=== PATIENT | female | born 1955 | race Caucasian/White ===

== ENCOUNTER 2019-08-31 08:25 | Outpatient (CLI) | payer MEDICARE, SELFPAY ==
--- NOTE | ~2019-08-31 | MM_ITS ---
EXAMINATION: MM screening [facility] BI w varun HISTORY: Screening mammogram TECHNIQUE: Craniocaudal and mediolateral oblique 3-D tomosynthesis images were obtained and synthetic 2-D images were generated. CAD analysis was submitted and interpreted. COMPARISON: 08/28/2018, 08/04/2017, 07/29/2016 bilateral digital screening mammogram examinations. BREAST PARENCHYMAL COMPOSITION: The breasts are heterogeneously dense, which may obscure small masses . FINDINGS: There is no evidence of suspicious mass, calcification, or architectural distortion to sugg est malignancy in either breast. There has been no suspicious interval change. IMPRESSION: 1. No mammographic evidence of malignancy. 2. Recommend routine screening mammography in one year. BI-RADS Category 1: Negative Reviewed, dictated and finalized at location A.
== END 2019-08-31 08:26 | disposition home or self-care (01) ==
DX: Z12.31 Encounter for screening mammogram for malignant neoplasm of breast (principal)
CPT/HCPCS: 77063; 77067

== ENCOUNTER 2020-09-02 08:33 | Outpatient (CLI) | payer MEDICARE, SELFPAY ==
--- NOTE | ~2020-09-02 | MM_ITS ---
EXAMINATION: MM screening marianne BI w varun HISTORY: Screening mammogram TECHNIQUE: Craniocaudal and mediolateral oblique 3-D tomosynthesis images were obtained and synthetic 2-D images were generated. CAD analysis was submitted and interpreted. COMPARISON: 09/08/2019, 08/28/2018, 08/04/2017 bilateral digital screening mammogram examinations BREAST PARENCHYMAL COMPOSITION: The breasts are heterogeneously dense, which may obscure small masses . FINDINGS: There is no evidence of suspicious mass, calcification, or architectural distortion to sugg est malignancy in either breast. There has been no suspicious interval change. IMPRESSION: 1. No mammographic evidence of malignancy. 2. Recommend routine screening mammography in one year. BI-RADS Category 1: Negative Reviewed, dictated and finalized at location A.
== END 2020-09-02 08:34 | disposition home or self-care (01) ==
LOC: ANHIMG 08:37
DX: Z12.31 Encounter for screening mammogram for malignant neoplasm of breast (principal)
CPT/HCPCS: 77063; 77067

== ENCOUNTER 2021-10-31 08:10 | Outpatient (CLI) | payer MEDICARE, SELFPAY ==
--- NOTE | ~2021-10-31 | MM_ITS ---
EXAMINATION: MM screening [facility] BI w varun HISTORY: Screening mammogram TECHNIQUE: Craniocaudal and mediolateral oblique 3-D tomosynthesis images were obtained and synthetic 2-D images were generated. CAD analysis was submitted and interpreted. COMPARISON: 09/02/2020, 08/31/2019 BREAST PARENCHYMAL COMPOSITION: The breasts are heterogeneously dense, which may obscure small masses . FINDINGS: There is no suspicious mass, calcification, or architectural distortion to suggest malignan cy in either breast. There has been no suspicious interval change. IMPRESSION: 1. No mammographic evidence of malignancy. 2. Recommend routine screening mammography in one year. BI-RADS Category 1: Negative Reviewed, dictated and finalized at location A.
== END 2021-10-31 08:11 | disposition home or self-care (01) ==
DX: Z12.31 Encounter for screening mammogram for malignant neoplasm of breast (principal)
CPT/HCPCS: 77063; 77067

== ENCOUNTER 2022-08-13 14:17 | Emergency (ER) | payer MEDICARE, SELFPAY ==
[2022-08-13] VITALS (10 sets, daily range): BP systolic 162–199; BP diastolic 64–94; PULSE 55–63; RESP 13–21; TEMP 36.4; O2SAT 96–100
--- NOTE | ~2022-08-13 | XR_ITS ---
Clinical Indication: Chest pain PA and lateral views of the chest: Comparison: 05/25/2012 Findings: The lungs are clear, without evidence of focal consolidation or pleural effusion. Cardiome diastinal silhouette is within normal limits. Bones and soft tissues are unremarkable. Impression: Normal chest. Reviewed, dictated and finalized at location . Impression: Normal chest.
--- NOTE | 2022-08-13 14:19 | ECG_ITS ---
Measurements Intervals [place] Rate: 60 P: 34 MN: 238 QRS: 9 QRSD: 105 T: 48 QT: 421 QTc: 424 Interpretive Statements SINUS RHYTHM WITH FIRST DEGREE AV BLOCK NO PREVIOUS ECG AVAILABLE FOR COMPARISON Electronically Signed On 08-13-2022 15:44:16 CDT by Kashmir Huff M.D.
[2022-08-13 14:44] LABS: Basophils Percent Auto 0.4 % (0.2-1.2); Eosinophils Absolute Auto 0.2 K/mm3 (0-0.3); Eosinophils Percent Auto 2.4 % (0-4.4); Hematocrit 38.6 % (37.0-47.0); Hemoglobin 12.6 g/dL (12.0-15.0); Immature Granulocyte Absolute 0.02 K/mm3 (0.00-0.031); Immature Granulocyte Percent A 0.3 % (0-0.5); Lymphocytes Absolute Auto 1.73 K/mm3 (0.9-3.2); Lymphocytes Percent Auto 25.6 % (18.3-44.2); Mean Corpuscular HGB Conc 32.6 g/dl (32-36); Mean Corpuscular Hemoglobin 27.2 pg (26-34); Mean Corpuscular Volume 83.2 fl (80-100); Mean Platelet Volume 9.2 fl (7.4-10.4); Monocytes Absolute Auto 0.5 K/mm3 (0.1-0.6); Neutrophils Absolute Auto 4.3 K/mm3 (1.3-6.7); Neutrophils Percent Auto 63.3 % (45.5-73.1); Platelet Count Result 187 k/mm3 (150-375); Red Blood Count 4.64 M/mm3 (4.2-5.4); Red Cell Distribution Width 12.9 % (11.5-14.5); White Blood Count 6.8 K/mm3 (4.5-10.0)
[2022-08-13 14:55] LABS: Alanine Aminotransferase 37 U/L (6-35); Albumin Level 4.4 g/dL (3.5-5.1); Alkaline Phosphatase 100 U/L (38-126); Anion Gap 6 mmol/L (8-16); Aspartate Amino Transferase 41 U/L (14-36); Bilirubin,Total 0.4 mg/dL (0.2-1.3); Blood Urea Nitrogen 16 mg/dL (7-17); Calcium 9.1 mg/dL (8.4-10.2); Carbon Dioxide 31 mmol/L (22-30); Chloride 98 mmol/L (98-107); Estimated CRCL calculation 80 ml/min; Estimated Glomerular Filt Rate > 60; Glucose 88 mg/dL (65-110); Lipase 122 U/L (23-300); Potassium 3.9 mmol/L (3.4-5.0); Sodium 135 mmol/L (137-145)
[2022-08-13 15:03] LABS: INR 1.1; Prothrombin Time 13.5 Seconds (11.1-14.7)
[2022-08-13 15:04] LABS: Partial Thromboplastin Time 30.6 SECONDS (22.3-36.8)
[2022-08-13 15:07] LABS: Troponin I < 0.012 ng/mL (0.000-0.034)
--- NOTE | 2022-08-13 16:00 | ED.CHESTPAIN ---
HPI - Chest Pain General Chief Complaint: Chest Pain Stated Complaint: cp Time Seen by Provider: 08/13/22 16:00 History of Present Illness HPI narrative: Patient presents with 1 week of persistent hypertension, and chest pain on and off. Has been followed by the stable attendant, was on blood pressure medications in the past but has not needed it for the last 5 years. No focal numbness or weakness. Related Data Home Medications Medication Instructions Recorded Confirmed rosuvastatin 10 mg tablet mg 08/13/22 Allergies Allergy/AdvReac Type Severity Reaction Status Date / Time No Known Allergies Allergy Verified 08/13/22 16:35 Review of Systems Review of Systems: CONST: No fever. HEENT: No sore throat C/V: Chest pain now resolved RESP: No cough GI: No abdominal pain : No dysuria. M/S: No joint pain. SKIN: No rash. NEURO: [No headache or focal numbness or weakness] PSYCH: [No depression] [facility] Past Medical History Medical History (Updated 08/13/22 @ 16:44 by Raiza Rowland MD) TIA (transient ischemic attack) Exam Narrative: EXAMINATION OF ORGAN SYSTEMS/BODY AREAS: Constitutional: Vital signs per nursing GENERAL:[No acute distress, non-toxic appearing.] HEAD: Normal with no signs of head trauma. EYES: EOMI, conjunctiva normal ENT: Hearing grossly intact LUNGS: Nonlabored breathing. HEART: [Regular rate and rhythm]; reproduction of pain with palpation ABD: [Soft], [nontender to palpation] EXT: Normal range of motion SKIN: [No rashes or lesions.] NEURO: [Alert and oriented x 3. No gross focal sensory or strength deficits.] PSYCH: Normal affect Course Vital Signs Vital signs: Vital Signs Temperature 97.6 F 08/13/22 14:21 Pulse Rate 63 08/13/22 14:21 Respiratory Rate 16 08/13/22 14:21 Pulse Oximetry 100 08/13/22 14:21 Oxygen Delivery Room Air 08/13/22 14:21 Temperature 97.6 F 08/13/22 14:21 Pulse Rate 63 08/13/22 14:21 Respiratory Rate 16 08/13/22 14:21 Blood Pressure 199/79 H 08/13/22 14:25 Pulse Oximetry 100 08/13/22 14:21 Oxygen Delivery Room Air 08/13/22 14:21 MDM - Chest Pain MDM Narrative Medical decision making narrative: ED COURSE AND MEDICAL DECISION MAKIN-year-old female presenting with chest pain and hypertension. EKG done in triage negative for acute ischemic changes. Cardiac workup is initiated. EKG: Performed in triage and interpreted by me. Normal sinus rhythm. Rate 60. Normal axis. WV normal. QRS duration normal. QTc normal. No pathologic Q waves. No ST segment elevation or depression to suggest acute ischemia. No RV strain pattern. CXR reviewed by myself no obvious consolidations or PTX. Labs reviewed no obvious abnormality including negative trop. HEART score is 3 with no acute ischemic changes on EKG and negative troponin making ACS unlikely. No DVT symptoms or difficulty breathing making PE unlikely. Presentation not consistent with dissection or aneurysm without radiation of pain or pulse deficits. CXR negative for mediastinal widening. No abdominal pain or signs of sepsis that would be concerning for esophageal perforation or mediastinitis. No cardiomegaly or JVD to suggest pericardial effusion/tamponade. HEART Score: 3. (Risk of major adverse cardiac events over 6 weeks: Score of 0-3 is low risk <2% ; Score of 4-6 is moderate risk ~12-15%; Score of 7-12 is high risk ~50%). On repeat evaluation just prior to discharge, the patient is no acute distress and asymptomatic. Repeat BP is improved but still elevated, patient had good experience with lisinopril 10mg in the past and K and Cr here are normal so I will start her on this. I had a long discussion with the patient and with shared decision making, she is comfortable with outpatient management and followup with her stable attendant. She was given clear return instructions by myself in person as well as on discharge paperwork. Lab Data 08/13/22 14:35 08/13/22 14:35
[2022-08-13] MEDS: lisinopriL 10 MG TABLET PO (16:47)
== END 2022-08-13 17:05 | disposition home or self-care (01) ==
PROVIDERS: Emergency Provider Emergency Medicine
DX: I10 Essential (primary) hypertension (principal); R07.9 Chest pain, unspecified
CPT/HCPCS: 36415; 71046; 80053; 83690; 84484; 85025; 85610; 85730; 93005; 99284; A9270

== ENCOUNTER → 2022-12-02 07:58 | Outpatient (CLI) | payer MEDICARE, SELFPAY ==
--- NOTE | ~2022-12-02 | MR_ITS ---
EXAMINATION: MR brain/brain stem wo/w con DATE: 12/02/2022 09:16 INDICATION: Left trigeminal neuralgia. TECHNIQUE: Magnetic resonance imaging (MRI) of the brain and brainstem was performed without and with 15 mL MultiHance intravenous contrast. COMPARISON: None. FINDINGS: There are scattered areas of nonspecific increased T2-weighted signal intensity in the cere bral white matter. There is no intracranial hemorrhage, acute infarction, or abnormal intracranial ma ss lesion. There is a vein adjacent to the root entry zone of left trigeminal nerve. There is no sonia ry adjacent to the trigeminal nerve. The ventricles are normal in size. There is mild mucosal thicken ing right maxillary sinus. The mastoid air cells are normal. The orbits are normal. IMPRESSION: 1. No specific etiology for trigeminal neuralgia. 2. Mild nonspecific cerebral white matter disease, which likely represents chronic small vessel ische lida disease. Reviewed, dictated and finalized at location A. IMPRESSION: 1. No specific etiology for trigeminal neuralgia. 2. 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
== END ==
DX: G50.0 Trigeminal neuralgia (principal); R93.0 Abnormal findings on diagnostic imaging of skull and head, not elsewhere classified
CPT/HCPCS: 70553; A9577

== ENCOUNTER 2022-12-07 08:08 | Outpatient (CLI) | payer MEDICARE, SELFPAY ==
--- NOTE | ~2022-12-07 | MM_ITS ---
EXAMINATION: MM screening marianne BI w varun HISTORY: Screening TECHNIQUE: Craniocaudal and mediolateral oblique 3-D tomosynthesis images were obtained and synthetic 2-D images were generated. CAD analysis was submitted and interpreted. COMPARISON: Comparison to multiple prior studies sequentially, with oldest reviewed study dated 09/2016. BREAST PARENCHYMAL COMPOSITION: The breasts are heterogeneously dense, which may obscure small masses . FINDINGS: There is no evidence of suspicious mass, calcification, or architectural distortion to sugg est malignancy in either breast. There has been no suspicious interval change. IMPRESSION: 1. No mammographic evidence of malignancy. 2. Recommend routine screening mammography in one year. BI-RADS Category 1: Negative Reviewed, dictated and finalized at location A.
== END 2022-12-07 08:09 | disposition home or self-care (01) ==
DX: Z12.31 Encounter for screening mammogram for malignant neoplasm of breast (principal)
CPT/HCPCS: 77063; 77067

== ENCOUNTER 2023-06-12 10:02 | Emergency (ER) | payer MEDICARE, SELFPAY ==
[2023-06-12 10:08] VITALS: BP 126/69; PULSE 68; RESP 16; TEMP 36.9; O2SAT 100
--- NOTE | 2023-06-12 10:20 | ED.EYEPROB ---
HPI - Eye Problem General Chief complaint: Eye Problems Stated complaint: [place] eye Source: patient, RN notes reviewed and old records reviewed Mode of arrival: ambulatory Limitations: no limitations History of Present Illness HPI Narrative: 67-year-old female presents to [facility] with complaints of right eye irritation, itching, redness this started last p.m.. Patient states has been exposed to conjunctivitis. Patient denies any other symptoms. Related Data Home Medications Medication Instructions Recorded Confirmed rosuvastatin 10 mg tablet 10 mg PO DAILY 08/13/22 06/12/23 alendronate 70 mg tablet 70 mg PO WEEKLY 06/12/23 06/12/23 Allergies Allergy/AdvReac Type Severity Reaction Status Date / Time No Known Allergies Allergy Verified 06/12/23 10:15 Review of Systems Constitutional: Constitutional: Reports no additional constitutional complaints, Denies body ache(s), Denies chills, Denies fatigue, Denies fever(s) and Denies headache(s) Eyes: Eyes: Reports as per HPI and Denies blurry vision Comments: Right eye redness, itching, irritation ENT: Reports system reviewed and no additional complaints, except as documented, Denies vertigo, Denies dizziness, Denies ear discharge, Denies otalgia, Denies facial pain, Denies headache(s), Denies nasal congestion, Denies nasal discharge, Denies sinus pain, Denies sinus pressure and Denies sore throat Cardiovascular: Cardiovascular: Reports no additional cardiovascular complaints, Denies chest pain, Denies chest pain at rest, Denies rapid heart rate and Denies dyspnea Respiratory: Respiratory: Reports no additional respiratory complaints, Denies chest congestion, Denies cough, Denies pain on inspiration, Denies pain with cough and Denies dyspnea Gastrointestinal: Gastrointestinal: Denies abdominal pain, Denies diarrhea, Denies nausea and Denies vomiting Integumentary/Breasts: Skin/Breast: Denies rash Neurologic: Reports system reviewed and no additional complaints, except as documented, Denies vertigo, Denies dizziness and Denies headache(s) Endocrine: Endocrine: Denies fatigue [facility] Past Medical History Medical History TIA (transient ischemic attack) Comments At the time of my signature, I reviewed and agree with the nursing past medical, surgical, social, and family history. There is no relevant family history pertinent to the patient complaint. Exam Const: General: cooperative, healthy appearing, no acute distress and well nourished Nutritional Appearance: well nourished Orientation/consciousness: patient oriented x3 Limitations: no limitations HENMT: Head: normal to inspection and normocephalic Ears: external ears normal, TM's normal bilaterally, mastoids normal and Abnormal EAC present Face/Nose/Sinus: normal facial exam Face and sinus: normal facial exam Mouth: Yes Normal oral and palatal mucosa present, Yes oropharynx normal and Yes moist mucous membranes Throat: tonsils normal, uvula midline and no uvular edema Eyes: Conjunctivae: conjunctival abnormality right other ( erythema) Pupils: Equal, round and reactive pupils present Resp: Effort & Inspection: normal respiratory effort, able to speak in complete sentences, no audible wheezes, no cough, no respiratory distress and no retractions Skin: General skin exam: normal color and no rashes or lesions noted Neuro: General: patient oriented x3 Cranial nerves: Yes Equal, round and reactive pupils present Psych: Appearance: grossly normal Mental Status: mental status grossly normal Speech and movement: Normal speech and movement present Affect: normal affect Course Course Emergency Course: Patient is aware of diagnosis, understands and agrees to treatment plan.? Anticipatory guidance given.? Patient agrees to follow-up as directed and is aware of reasons to seek care at the emergency department. Some parts of this dictation were generat
== END 2023-06-12 10:29 | disposition home or self-care (01) ==
PROVIDERS: Emergency Provider Registered Nurse; PCP Pediatrics
DX: H10.89 Other conjunctivitis (principal); Z79.899 Other long term (current) drug therapy; Z86.73 Personal history of transient ischemic attack (TIA), and cerebral infarction without residual deficits
CPT/HCPCS: 99213; G0463

== ENCOUNTER 2023-09-12 10:02 | Outpatient (CLI) | payer MEDICARE, SELFPAY ==
--- NOTE | ~2023-09-12 | MMUS_ITS ---
EXAMINATION: MM diagnostic marianne LT w varun, US breast LT complete HISTORY: Left breast pain TECHNIQUE: Additional 3-D tomosynthesis images of the left breast were performed and synthetic 2-D im ages were generated. CAD analysis was submitted and interpreted. High resolution complete left breast ultrasound was performed. COMPARISON: Comparison to multiple prior studies sequentially, with oldest reviewed study dated 08/04. BREAST PARENCHYMAL COMPOSITION: Dense: The breasts are heterogeneously dense, which may obscure small masses FINDINGS: MAMMOGRAPHIC FINDINGS: There are no suspicious masses, calcifications or architectural distortion in the left breast to sugg est malignancy. ULTRASOUND: Complete US of all 4 quadrants of the left breast and retroareolar region was reviewed. There are no suspicious masses in the left breast to suggest malignancy. Mildly prominent ducts is present at 4:00 , 4 cm from the nipple. IMPRESSION: 1. No evidence for malignancy in the left breast. 2. Routine yearly screening mammogram and regular clinical breast examination are recommended. BI-RADS Category 1: Negative Reviewed, dictated and finalized at location A. IMPRESSION: 1. No evidence for malignancy in the left breast. 2. Routine yearly screening mammogram and regular clinical breast examination a re recommended. BI-RADS Category 1: Negative
== END 2023-09-12 10:03 | disposition home or self-care (01) ==
DX: Z12.31 Encounter for screening mammogram for malignant neoplasm of breast (principal); R92.8 Other abnormal and inconclusive findings on diagnostic imaging of breast
CPT/HCPCS: 76641; 77061; 77065; G0279

== ENCOUNTER 2023-12-15 07:59 | Outpatient (CLI) | payer MEDICARE, SELFPAY ==
--- NOTE | ~2023-12-15 | MM_ITS ---
EXAMINATION: MM screening marianne BI w varun HISTORY: Screening TECHNIQUE: Craniocaudal and mediolateral oblique 3-D tomosynthesis images were obtained and synthetic 2-D images were generated. CAD analysis was submitted and interpreted. COMPARISON: Comparison to multiple prior studies sequentially, with oldest reviewed study dated 09/2018. BREAST PARENCHYMAL COMPOSITION: Dense: The breasts are heterogeneously dense, which may obscure small masses FINDINGS: There is focal asymmetry superiorly in the left breast on MLO view. The right breast is sta ble. IMPRESSION: 1. Left breast asymmetry superiorly on MLO view. 2. Additional mammographic views and possible breast ultrasound are recommended. BI-RADS Category 0: Incomplete: Needs additional imaging evaluation. Reviewed, dictated and finalized at location B. IMPRESSION: 1. Left breast asymmetry superiorly on MLO view. 2. Additional mammographic views and possible breast ultrasound are recommended . BI-RADS Category 0: Incomplete: Needs additional imaging evaluation.
== END 2023-12-15 08:00 | disposition home or self-care (01) ==
LOC: ANHIMG 08:02
DX: Z12.31 Encounter for screening mammogram for malignant neoplasm of breast (principal); R92.8 Other abnormal and inconclusive findings on diagnostic imaging of breast
CPT/HCPCS: 77063; 77067

== ENCOUNTER 2024-01-03 00:45 | Day surgery (SDC) | payer MEDICARE, SELFPAY ==
[2023-12-14 10:51] VITALS: BMI 24.7
[2024-01-03 06:48] VITALS: BMI 25.0
[2024-01-03 06:52] VITALS: BP 149/74; PULSE 67; RESP 20; TEMP 36; O2SAT 99
--- NOTE | 2024-01-03 06:54 | P.PNAN_ITS ---
Anes - Initial Pre Proc Eval Procedure: Operation Date: 01/03/24 08:00 Proposed Procedures p Colonoscopy - Jimmie Weiss MD Date/Time: 01/03/24 06:54 Surgeon: Jimmie Weiss MD Pre Op Diagnosis: personal history colon polyps Patient Data Age: 68 Gender: F Height: 1.75 m Weight: 76.8 kg Last Vital Signs Temp 36.0 C L 01/03/24 06:52 Pulse 67 01/03/24 06:52 Resp 20 01/03/24 06:52 BP 149/74 H 01/03/24 06:52 Pulse Ox 99 01/03/24 06:52 O2 Del Method Room Air 01/03/24 06:52 Allergies Allergy/AdvReac Type Severity Reaction Status Date / Time No Known Allergies Allergy Verified 01/03/24 06:47 Home Medications Medication Instructions Recorded Confirmed Type rosuvastatin 10 mg tablet 10 mg PO DAILY 08/13/22 01/03/24 History ofloxacin 0.3 % eye drops 2 drp EACH EYE QID 7 days #5 mL 06/12/23 01/03/24 Rx aspirin 81 mg tablet 81 mg PO DAILY 12/14/23 01/03/24 History cholecalciferol (vitamin D3) 50 50 mcg PO DAILY 12/14/23 01/03/24 History mcg (2,000 unit) tablet magnesium 500 mg tablet 500 mg PO DAILY 12/14/23 01/03/24 History ferrous sulfate 27 mg iron tablet 18 mg PO DAILY 01/03/24 01/03/24 History Patient hx anesthesia problems: none Family hx anesthesia problems: none Results Review: All pre-operative results and documents have been reviewed as part of the pre- operative evaluation. [facility] Past Medical History Medical History (Updated 01/03/24 @ 07:38 by Jimmie Weiss MD) Colon polyp Hyperlipidemia Hypertension TIA (transient ischemic attack) 2005 Trigeminal neuralgia Social History Social History Smoking status: Never smoker Substance use type: does not use Living arrangements: alone Spiritual care concerns: No Anes - Eval Final PreProcedure Day of Procedure 01/03/24 06:54 Patient weight: normal Heart: regular rate and rhythm Lungs: clear to auscultation and normal air movement Airway: Mallampati scale class II Neurological: alert and oriented Last oral intake: >/= 8 hours ASA classification: III Emergent: no Anesthetic plan: proceed Anesthesia type and monitoring: general GIVS and standard monitoring Results Review: All pre-operative results and documents have been reviewed as part of the pre-operative evaluation. Informed Consent: The patient's anesthetic plan and its attendant risks and benefits were discussed with the patient/family/POA. Questions were solicited and answers provided to the satisfaction of the patient/family/POA.
[2024-01-03] MEDS: LACTATED RINGERS 1,000 ML 150 ML IV CONT (06:58)
--- NOTE | 2024-01-03 07:38 | P.HP_ITS ---
History of Present Illness History of Present Illness Consent: Risks, benefits, and alternatives have been discussed and questions answered. Patient agrees to proceed with procedure. Chief complaint: personal history colon polyps Narrative: Hien Burrell is a 68 year old female with colon polyp, last colonoscopy about 5 years ago Review of Systems Review of Systems: All systems reviewed & are unremarkable except as noted in HPI and below PMFSH Past Medical History Medical History (Updated 01/03/24 @ 07:38 by Jimmie Weiss MD) Colon polyp Hyperlipidemia Hypertension TIA (transient ischemic attack) 2005 Trigeminal neuralgia Social History Social History Smoking status: Never smoker Substance use type: does not use Living arrangements: alone Spiritual care concerns: No Meds Home Medications and Allergies Home Medications Medication Instructions Recorded Confirmed Type rosuvastatin 10 mg tablet 10 mg PO DAILY 08/13/22 01/03/24 History ofloxacin 0.3 % eye drops 2 drp EACH EYE QID 7 days #5 mL 06/12/23 01/03/24 Rx aspirin 81 mg tablet 81 mg PO DAILY 12/14/23 01/03/24 History cholecalciferol (vitamin D3) 50 50 mcg PO DAILY 12/14/23 01/03/24 History mcg (2,000 unit) tablet magnesium 500 mg tablet 500 mg PO DAILY 12/14/23 01/03/24 History ferrous sulfate 27 mg iron tablet 18 mg PO DAILY 01/03/24 01/03/24 History Allergies Allergy/AdvReac Type Severity Reaction Status Date / Time No Known Allergies Allergy Verified 01/03/24 06:47 Vital Signs Vital Signs - 24 hr 01/03/24 06:52 Temperature 96.8 F L Pulse Rate 67 Respiratory Rate 20 Blood Pressure 149/74 H Pulse Oximetry 99 Oxygen Delivery Room Air Exam Const: General: comfortable and no acute distress HENMT: Face/Nose/Sinus: Normal nares present Eyes: General: appearance normal, both eyes and all related structures Neck: Neck: no JVD Resp: Auscultation: clear to auscultation bilaterally Cardio: Rate: regular rate Rhythm: regular rhythm GI: Inspection: non-distended GI Palp: Yes Soft to palpation Skin: General skin exam: normal color Neuro: General: gait normal Speech: normal speech Extrem: General: normal to inspection Psych: Mental Status: mental status grossly normal Assessment and Plan Assessment and plan (1) Colon polyp: Code(s): K63.5 - Polyp of colon Status: Acute Assessment and Plan: colonoscopy
[2024-01-03 07:53] VITALS: BP 126/71; PULSE 53; RESP 18; O2SAT 98
[2024-01-03 08:03] VITALS: BP 123/70; PULSE 56; RESP 21; O2SAT 98
[2024-01-03 08:13] VITALS: BP 131/66; PULSE 56; RESP 15; O2SAT 100
== END 2024-01-03 08:16 | disposition home or self-care (01) ==
PROVIDERS: Visit Provider Internal Medicine Gastroenterology
PROC: 0DJD8ZZ Inspection of Lower Intestinal Tract, Via Natural or Artificial Opening Endoscopic (ICD-10-PCS; CPT 45378; principal; 2024-01-03 08:00)
DX: Z12.11 Encounter for screening for malignant neoplasm of colon (principal); K63.5 Polyp of colon; K64.8 Other hemorrhoids; K57.30 Diverticulosis of large intestine without perforation or abscess without bleeding; I10 Essential (primary) hypertension; E78.5 Hyperlipidemia, unspecified; I25.2 Old myocardial infarction; Z79.82 Long term (current) use of aspirin
CPT/HCPCS: 45385; 88305; J2704; J7120

== ENCOUNTER 2024-02-10 21:24 | Emergency (ER) | payer MEDICARE, SELFPAY ==
[2024-02-10] VITALS (7 sets, daily range): BP systolic 117–214; BP diastolic 75–91; PULSE 61–76; RESP 14–20; TEMP 36.4–36.6; O2SAT 96–100
--- NOTE | ~2024-02-10 | XR_ITS ---
CHEST RADIOGRAPH, PA AND LATERAL CLINICAL HISTORY: chest pain WITH DIZZINESS AND ELEVATED BLOOD PRESSURE . COMPARISON: 08/13/2022 TECHNIQUE: PA and lateral views of the chest. FINDINGS The cardiomediastinal silhouette is unremarkable. The lungs are clear. Visualized osseous structures and soft tissues are unremarkable. IMPRESSION: Stable radiographic evaluation of the chest, without focal infiltrate or effusion. Reviewed, dictated and finalized at location A. IMPRESSION: Stable radiographic evaluation of the chest, without focal infiltrate or effusi on.
--- NOTE | 2024-02-10 21:36 | ECG_ITS ---
Test Date: 2024-02-10 21:38:53 Measurements Intervals [place] Rate: 60 P: 30 LA: 207 QRS: 11 QRSD: 106 T: 56 QT: 404 QTc: 406 Interpretive Statements SINUS RHYTHM NORMAL ELECTROCARDIOGRAM No previous ECG available for comparison Electronically Signed On 02-11-2024 09:48:47 CDT by Kashmri Huff M.D.
[2024-02-10 22:18] LABS: Basophils Percent Auto 0.4 % (0.2-1.2); Eosinophils Absolute Auto 0.1 K/mm3 (0-0.3); Eosinophils Percent Auto 0.9 % (0-4.4); Hematocrit 37.4 % (37.0-47.0); Hemoglobin 12.4 g/dL (12.0-15.0); Immature Granulocyte Absolute 0.02 K/mm3 (0.00-0.031); Immature Granulocyte Percent A 0.2 % (0-0.5); Lymphocytes Absolute Auto 1.85 K/mm3 (0.9-3.2); Lymphocytes Percent Auto 22.6 % (18.3-44.2); Mean Corpuscular HGB Conc 33.2 g/dl (32-36); Mean Corpuscular Hemoglobin 28.1 pg (26-34); Mean Corpuscular Volume 84.6 fl (80-100); Mean Platelet Volume 9.5 fl (7.4-10.4); Monocytes Absolute Auto 0.8 K/mm3 (0.1-0.6); Monocytes Percent Auto 9.3 % (2.6-8.5); Neutrophils Absolute Auto 5.5 K/mm3 (1.3-6.7); Neutrophils Percent Auto 66.6 % (45.5-73.1); Platelet Count Result 210 k/mm3 (150-375); Red Blood Count 4.42 M/mm3 (4.2-5.4); White Blood Count 8.2 K/mm3 (4.5-10.0)
--- NOTE | 2024-02-10 22:23 | ED.GENADULT ---
HPI - General Adult General Chief complaint: Recheck/Abnormal Lab/Rx Stated complaint: hypertension Time Seen by Provider: 02/10/24 21:49 Source: patient Mode of arrival: ambulatory History of Present Illness HPI narrative: Complaining of high blood pressure. History of high blood pressure. Says her blood pressure goes up and down she is not currently on anything. Typically takes lisinopril. Took 1 dose today after blood pressure went up. Has not had any symptoms including no chest pain or shortness of breath. No headache, lightheadedness, nausea, vomiting. Related Data Home Medications Medication Instructions Recorded Confirmed rosuvastatin 10 mg tablet 10 mg PO DAILY 08/13/22 01/03/24 aspirin 81 mg tablet 81 mg PO DAILY 12/14/23 01/03/24 cholecalciferol (vitamin D3) 50 50 mcg PO DAILY 12/14/23 01/03/24 mcg (2,000 unit) tablet magnesium 500 mg tablet 500 mg PO DAILY 12/14/23 01/03/24 ferrous sulfate 27 mg iron tablet 18 mg PO DAILY 01/03/24 01/03/24 Allergies Allergy/AdvReac Type Severity Reaction Status Date / Time No Known Allergies Allergy Verified 01/03/24 06:47 Review of Systems Review of Systems: All systems reviewed & are unremarkable except as noted in HPI and below PMFSH Past Medical History Medical History Colon polyp Hyperlipidemia Hypertension TIA (transient ischemic attack) 2005 Trigeminal neuralgia Social History Social History Smoking status: Never smoker Substance use type: does not use Living arrangements: alone Spiritual care concerns: No Exam Narrative: Constitutional: Generally well appearing, no acute distress Head: Atraumatic, no deformities. Eyes: Pupils equal, round, and reactive to light. Neck: Supple, no tracheal deviation, no JVD. ENMT: Mucous membranes moist Cardiovascular: S1, S2 auscultated. No murmurs, rubs, or gallops. No S3/S4. Normal Distal pulses. No peripheral edema. Respiratory: Lung sounds equal. No wheezes, rales, or rhonchi. Gastrointestinal: Abdomen was soft and non-tender. Non-distended. No rebound or guarding. Genitourinary: Deferred Musculoskeletal: Normal muscle tone and bulk. No obvious deformities or tenderness over extremities. Skin: No rashes. Neurological: Strength 5/5 in extremities. Cranial nerves I-XII grossly intact. Distal sensation intact. Mental Status: Awake, alert and oriented x3. Follows commands Course Vital Signs Vital signs: Vital Signs Temperature 36.4 C L 02/10/24 21:26 Pulse Rate 68 02/10/24 21:26 Respiratory Rate 16 02/10/24 21:26 Blood Pressure 214/91 H 02/10/24 21:26 Pulse Oximetry 100 02/10/24 21:26 Oxygen Delivery Room Air 02/10/24 21:26 Temperature 36.6 C 02/10/24 23:36 Pulse Rate 76 02/10/24 23:36 Respiratory Rate 16 02/10/24 23:36 Blood Pressure 117/76 02/10/24 23:36 Pulse Oximetry 98 02/10/24 23:36 Oxygen Delivery Room Air 02/10/24 21:26 Medical Decision Making MDM Narrative Medical decision making narrative: Patient with history of hypertension not currently on any antihypertensive presenting for hypertension. Asymptomatic. Exam is unremarkable apart from blood pressure 214/91. She is not showing signs of hypertensive emergency hourly. Obtain basic lab work from EKG. Will start amlodipine here as well. EKG at 9:30 p.m. shows Sinus rhythm, normal intervals. Rate of 60. No ST elevation or depression. Impression: No STEMI Workup unremarkable. Started patient on amlodipine, stable for discharge home. Blood pressure did improve. Pt feeling improved and would like to go home at this point. Return precautions were given to the patient include any new or worsening symptoms or development of and not limited to any chest pain, shortness of breath, lightheadedness, abdominal pain, fevers, chills. Patient understands and agrees. They are t
[2024-02-10] MEDS: amLODIPine BESYLATE 5 MG TABLET PO (22:27)
[2024-02-10 22:28] LABS: Alanine Aminotransferase 26 U/L (6-35); Albumin Level 4.3 g/dL (3.5-5.1); Alkaline Phosphatase 80 U/L (38-126); Anion Gap 7 mmol/L (4-12); Aspartate Amino Transferase 31 U/L (14-36); Bilirubin,Total 0.3 mg/dL (0.2-1.3); Blood Urea Nitrogen 18 mg/dL (7-17); Calcium 9.5 mg/dL (8.4-10.2); Carbon Dioxide 28 mmol/L (22-30); Chloride 94 mmol/L (98-107); Estimated CRCL calculation 67 ml/min; Estimated Glomerular Filt Rate > 60; Glucose 101 mg/dL (65-110); Lipase 170 U/L (23-300); Potassium 3.9 mmol/L (3.4-5.0); Sodium 129 mmol/L (137-145)
[2024-02-10 22:29] LABS: Prothrombin Time 13.1 Seconds (11.1-14.7)
[2024-02-10 22:30] LABS: Partial Thromboplastin Time 29.2 Seconds (22.3-36.8)
[2024-02-10 22:40] LABS: Troponin I < 0.012 ng/mL (0.000-0.034)
== END 2024-02-10 23:37 | disposition home or self-care (01) ==
PROVIDERS: Emergency Provider Emergency Medicine; PCP Pediatrics
DX: I10 Essential (primary) hypertension (principal); E78.5 Hyperlipidemia, unspecified; Z86.73 Personal history of transient ischemic attack (TIA), and cerebral infarction without residual deficits; Z86.0100 Personal history of colon polyps, unspecified; Z79.899 Other long term (current) drug therapy
CPT/HCPCS: 36415; 71046; 80053; 83690; 84484; 85025; 85610; 85730; 93005; 99284; A9270

== ENCOUNTER 2024-04-16 12:41 | Outpatient (CLI) | payer MEDICARE, SELFPAY ==
--- NOTE | ~2024-04-16 | MM_ITS ---
EXAMINATION TYPE: MM diagnostic marianne LT w varun COMPARISON: 12/15/2023 and dating back to 09/02/2020 REASON FOR STUDY: Asymmetry within the upper left breast seen only on MLO view TECHNIQUE: Left-sided mediolateral oblique and craniocaudal views were obtained digitally with 3-D m ammogram (digital breast tomosynthesis) with CAD. Computer-aided detection was utilized in evaluation of this examination. BREAST PARENCHYMAL COMPOSITION:Dense: The breasts are heterogeneously dense, which may obscure small masses. FINDINGS: There is no suspicious mass, suspicious architectural distortion, or suspicious calcifications The asymmetry effaces with spot compression representing a summation artifact for which no further fo llow-up is needed. IMPRESSION: No mammographic or tomographic evidence to suggest the presence of malignancy. BI-RADS CATEGORY: 2: Benign findings RECOMMENDATION: Resumption of yearly mammography is recommended. Reviewed, dictated and finalized at location A. NCE WRITER
== END 2024-04-16 12:42 | disposition home or self-care (01) ==
LOC: ANHIMG 12:44
DX: R92.8 Other abnormal and inconclusive findings on diagnostic imaging of breast (principal)
CPT/HCPCS: 77061; 77065; G0279

== ENCOUNTER 2024-12-17 08:46 | Outpatient (CLI) | payer MEDICARE, SELFPAY ==
--- OUTSIDE RECORDS SUMMARY | 2018-01-19 09:40 | XMS_ITS | Continuity of Care Document ---
[facility] Address [address] [place] [address] Phone Care Team Providers Care Trader Name Role Phone Ann Marie Short MD Unavailable Unavailable Allergies, Adverse Reactions, Alerts Substance Reaction Status Criticality No Known Allergies Active No Inform ation Medications Medication Instructions Dosage Effective Dates (start - stop) Status Comments ibuprofen 800 mg tablet take 1 tablet by oral route 3 times every day with food 800 MG - Active aspirin 81 mg chewable tablet chew 1 tablet by oral route every day 81 MG - Active Livalo 1 mg tablet take 1 tablet by ora l route every day 1 MG - Active potassium 99 mg tablet take 1 tablet by oral route every day - Active Advance Directives Directive Yes / No Effective Date File Name No Information Encounters Encounter Description Practice Location Reason(s) For Visit Diagnoses Date Provider Providers Copied on Encounter [facility], [address], [place], [place], [id number], tel:[phone] [facility] Chronic pain of left knee [facility] Jesus. [address], [place], [place], [address], [place]. tel:[phone] Referring Provider: [address], [place], [address]. tel:[phone] [facility], [address], [place], [place], [address], tel:[phone] [facility] Status post arthroscopy of right knee [facility]. [address], [place], [place], [address], [place]. tel:[phone] Referring Provider: Ann Marie Short, [address], [place], [address]. tel:[phone] [facility] [address], [place], [place], [address], tel:[phone] [facility] tear of lateral meniscus of left knee as current injury, subsequent encounter [facility]. [address], [place], [place], [address], [place]. tel:[phone] Referring Provider: Ann Marie Short, [address], [place], [address]. tel:[phone] [facility] [address], [place], [place], [address], tel:[phone] [facility] Acute pain of right knee [facility]. [address], [place], [place], [address], [place]. tel:[phone] Referring Provider: Ann Marie Short, [address], [place], [address]. tel:[phone] [facility] [address], [place], [place], [address], [place] tel:[phone] [facility] Acute pain of right knee [facility]. [address], [place], [place], [address], [place]. tel:[phone] [facility] [address], [place], [place], [address], [place] tel:[phone] [facility] Chronic pain of left kneeOther chronic pain [facility]. [address], [place], [place], [address], [place]. tel:[phone] Referring Provider: Ann Marie Short, [address], [place], [address]. tel:[phone] Family History Family Member Type Diagnosis Age At Onset No Information Payers Payer name Insurance type Covered alliance party ID Melvin lemon(s) [facility] [id number] Social History Type Description Quantity Date Captured Comments Alcohol Use Details No Caffeine Use Details Unknown Tobacco Use Status No Information Smoking Status Never smoker Sex Female Chief Complaint And Reason For Visit No Information Reason For Referral Reason For Referral No Information Plan Of Treatment Date Type Action Status Future Order: Radiology Order X- RAY EXAM OF KNEE, A/P & LAT Right ([id number]), Sent on: Sent History Of Present Illness Encounter Date Complaint History Of Prese nt Illness No Information Functional Status Date Functional Assessmen t No Information Medications Administered Medication Instructions Dosage Effective Dates (start - stop) Status Comments No Drug Therapy Prescribed Instructions Date Instruction Additional Infor mation No Information Assessments Type Assessment Date No Information Patient Care Teams Name Effective Dates (start - stop) Status Members No Information
--- NOTE | ~2024-12-17 | MM_ITS ---
EXAMINATION: MM screening marianne BI w varun HISTORY: Screening TECHNIQUE: Craniocaudal and mediolateral oblique 3-D tomosynthesis images were obtained and synthetic 2-D images were generated. CAD analysis was submitted and interpreted. COMPARISON: Comparison to multiple prior studies sequentially, with oldest reviewed study dated 08/28/2018. BREAST PARENCHYMAL COMPOSITION: The breasts are heterogeneously dense, which may obscure small masses. FINDINGS: There is no evidence of suspicious mass, calcification, or architectural distortion to suggest malignancy in either breast. IMPRESSION: 1. No mammographic evidence of malignancy. 2. Recommend routine screening mammography in one year. BI-RADS Category 1: Negative Reviewed, dictated and finalized at location B.
--- OUTSIDE RECORDS SUMMARY | 2024-12-17 09:04 | XMS_ITS | Clinical Summary ---
Author Organization [facility] (Formerly [facility]) [address] Address [address] [place] [address] Care Team Providers Care Certified Phlebotomist Name Role Phone Nancy Bertrand MD Primary Care Provider [phone] Allergies Active Allergy Reactions Criticality Noted Date Comments Amlodipine Unknown 03/04/2024 Ezetimibe Muscle Pain Medium 09/03/2020 Lisinopril Cough Low 04/26/2024 Pravastatin Muscle Pain Medium 02/27/2018 Rrxwuoy-Sbn-Umn Reductase Inhibitors Muscle Pain High 02/27/2018 Medications pedi multivit no.58-iron fum 18 mg iron Tablet, Chewable Take by mouth. Active aspirin (ECOTRIN EC) 81 mg Tablet, Delayed Release (E.C.) Take 81 mg by mouth daily. Active rosuvastatin (CRESTOR) 5 mg tablet Take 5 mg by mouth daily. Active magnesium OXIDE 250 mg magnesium Tablet Take 800 mg by mouth daily at bedtime. 11/01/2022 Active Coenzyme J16-Kdrjfjv E 100-5 mg-unit Capsule Take 2 Tablets by mouth daily. Active cholecalciferol , vitamin D3, 1,000 unit Take 2,000 mcg by mouth daily. Active Active Problems Patient Care Coordination No te Formatting of this note migh t be different from the original. Credit Counselor Dr. Mel [place] Problem Noted Date Diagnosed Date Labile hypertension 10/29/2024 Statin myopathy 10/29/2024 H/O: CVA (cerebrovascular accident) 10/29/2024 Mixed hyperlipidemia 10/29/2024 Orthostatic hypotension 10/29/2024 Encounters Date Type Department Care Team Description 12/11/2024 External Device Data [facility] ABSTRACTION Provider, Abstract 11/27/2024 External Device Data [facility]STRACTION Provider, Abstract 11/07/2024 External Device Data [facility]STRACTION Provider, Abstract 11/06/2024 External Device Data [facility]STRACTION Provider, Abstract 10/30/2024 External Device Data [facility]STRACTION Provider, Abstract 10/30/2024 External Device Data [facility] ABSTRACTION Provider, Abstract 10/30/2024 External Device Data [facility] ABSTRACTION Provider, Abstract 10/29/2024 10:45 AM CDT Office Visit [facility] [address] [phone] Mark Leal MD Labile hypertension (Primary Dx); Orthostatic hypotension; Statin myopathy; Mixed hyperlipidemia; H/O: CVA (cerebrovascular accident) from Last 3 Months Social History Tobacco Use Types Packs/Day Years Used Date Smoking Tobacco: Never Tobacco Cessation:Counseling Given: Not Answered Alcohol Use Standard Drinks/Week Comments Never 0 (1 standard drink = 0.6 oz pur e alcohol) Comments Unknown Sex and Gender Information Value Date Recorded Sex Assigned at Not on file 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 Gender Identity Not on file Sexual Orientation Not on file Last Filed Vital Signs Vital Sign Reading Time Taken Comments Blood Pressure 186/96 10/29/2024 11:27 AM CDT Pulse 60 10/29/2024 11:27 AM CDT Temperature - - Respiratory Rate - - Oxygen Saturation 99% 10/29/2024 10:43 AM CDT Inhaled Oxygen Concentration - - Weight 78 kg (172 lb) 10/29/2024 10:43 AM CDT Height 175.3 cm (5' 9) 10/29/2024 10:43 AM CDT Body Mass Index 25.4 10/29/2024 10:43 AM CDT Plan of Treatment Upcoming Encounters Date Type Department Care Team (Late st Contact Info) Description 04/29/2025 10:45 AM STRIP MILL OPERATOR Office Visit [facility] [address] [phone] Mark Leal MD [address] [place] [address] [place] [phone] Health Maintenance Due Date Last Done Comments DTAP/TDAP/TD VACCINES (1 - Tdap) 1972 FIT-DNA Q 3 years 1998 FIT/FOBT Q 1 year 1998 Flex Sig/CT Colonography Q 5 years 1998 ZOSTER VACCINE (1 of 2) 08/26/2003 PNEUMOCOCCAL VACCINE 50+ YEA RS (2 of 2 - PCV) 08/10/2022 08/10/2021 BREAST CANCER SCREENING 09/11/2024 09/12/2023 INFLUENZA VACCINE (#1) 2024 OSTEOPOROSIS SCREENING 03/07/2028 03/07/2023, 2022 RSV VACCINE (60+ or ) (1 - 1-dose 75+ series) 2028 COLORECTAL SCREENING 01/02/2034 01/03/2024 Colorectal Cancer Screening 01/02/2034 Procedures Procedure Name Priority Date/Time Associated Diagnosis Comments WY ECG ROUTINE ECG W/LEAST 12 LDS W/I&R Routine 10/29/2024 10:45 AM CDT Labile hypertension from Last 3 Months Results * WY ECG ROUTINE ECG W/LEAST 12 LDS W/I&R (10/29/2024 10:45 AM CDT) Narrative [facility] [address] - 10/29/2024 10:45 AM CDT Mark Leal MD 10/29/2024 2:35 PM EKG Date/Time: 10/29/2024 10:45 AM Performed by: Mark Leal MD Authorized by: Mark Leal MD Comments: Sinus bradycardia 55 bpm baseline artifact first-degree AV block WY 212 ms QRS 106 ms QT corrected 4.7 ms, borderline ECG Procedure Note Mark Leal MD - 10/29/2024 10:43 AM CDT [facility] Cardiology Outpatient Progress Note Date of visit: 10/29/24 Primary Care Physician: Nancy Bertrand MD Cardiovascular problem list: ICD-10-CM ICD-9-CM 1. Labile hypertension R09.89 401.9 2. Orthostatic hypotension I95.1 458.0 3. Statin myopathy G72.0 359.4 T46.6X5A E942.2 4. Mixed hyperlipidemia E78.2 272.2 5. H/O: CVA (cerebrovascular accident) Z86.73 V12.54 Impression: ICD-10-CM ICD-9-CM 1. Labile hypertension R09.89 401.9 2. Orthostatic hypotension I95.1 458.0 3. Statin myopathy G72.0 359.4 T46.6X5A E942.2 4. Mixed hyperlipidemia E78.2 272.2 5. H/O: CVA (cerebrovascular accident) Z86.73 V12.54 Assessment/Plan: BP labile not ideally controlled with intermittent symptomatic relativehypotension, goal BP<130/80mmHg. Monitor BP on routine basis. Call withreadings. Continue consistent cardiovascular exercise, weight loss,medication compliance, and low- sodium diet. Continue to monitor BP onroutine basis as counseled. Not able to initiate directed therapy. Sxssuggestive of orthostasis and she is significantly orthostatic in theoffice today supine 186/96 sitting 162/90, standing 142/88 mmHg. Also torise slowly from a seated position with dehydration, extremes ofheat/humidity, alcohol, excessive caffeine. Given degree of hypertensionwould not be advisable to initiate midodrine at this time particular giveninfrequent symptoms. Counseled on the importance of bilateral lowerextremity compression stockings potentially abdominal binder if necessary.Notify the office with progression or new concerns. Patient verbalizedher standing and agree. Recommendations to follow. - She is currently off antihypertensive therapy due to similar symptomsexacerbated with directed medical therapy. Lipid panel personally reviewed from 02/20/24 LDL 76 which is marginallycontrolled, goal LDL <70 (target 55). Continue lifestyle modification andmedical therapy. intolerant to other statins and Zetia. Lifestylemodification counseling. Much improved tolerance on BID CoEQ10. -HuryugKcE11 to keep muscle cramps controlled. -PCSK9 inhibitor therapy an option such as Repatha or Praluent. -She has needle phobia and so she will entertain this option, says greg pass out. - She remains on rosuvastatin 5 mg daily. Fasting lipid profile pending.Will review lab studies when available as requested. Encouraged continue lifestyle modification including consistentcardiovascular exercise of at least 150 minutes weekly and/or 90 minutesleast moderate cardiovascular activity. CVA risk reduction counseling with lifestyle, lipid control, and medicaltherapy. -Cont ASA 81mg daily given h/o CVA. No clear benefit with higher dose ASAbut inc bleeding risk as counseled. Statin therapy also importantcardiovascular risk reduction looking forward. Follow up in the office Return in about 6 months (around 05/01/2025). orsooner as needed. Thank you for allowing me the privilege of participating in the care thisvery pleasant patient. Please do not hesitate to contact me with anyadditional questions or concerns. Mark Leal MD Subjective: Ms. Burrell is a pleasant 69 y.o. female with a PMHx of HTN, dyslipidemia,chronic fatigue, h/o CVA, atypical CP seen in follow-up. 10/29/16 c/o more fatigue of late. Still occ CP spells no relief withholding statin for a week so restarted. Thinks CP may be related toindigestion as more often noted around meals/after eating. C/o ocularmigraine CHIU's, leg fatigue resolved. Exercising regularly on ellipticalwhich is helping. No sig palps, no falls or bleeding. Denies dizziness orlightheadedness. Doing ok otherwise. Sleeping ok at night, unsure ifsnores or PND. Feels she sleeps deeply. Pravastatin inc to 40mg in [facility]. 05/06/17 NOtes occ CHIU, feeling tired after having 2 outpatient surgeriesend of last year. Tired all the time. Occ CP which she does not feelrelated to meals or acid reflux. Had gained wt, less active but lost itagain. CP left upper chest moves up chest then resolves, no radiation orassociated sxs lasting maybe 10 seconds sharp shooting pain moderateintensity at rest, random. Notes C6 neck pain. Started on Crestor inOctober and seems to be tolerating so far. [facility]. +dizziness while turning head feels more relatedto visual disturbance lasting only a split second. But notes after her eyeis healing, CHIU's have improved and her CP has subsided as well and nonefor the past week. Using elliptical machine. 11/09/17 Feeling more tired of late, occ CHIU on left side, occ dizziness butno near syncope or syncope. HAd not been exercising as frequently due toknee pain but trying to get back into it better starting more slowly. C/oher most recent surgeries have set her back with tough recovery from whichshe feels she is still recovering. NO MARISCAL. HAve not had any CP since lastvisit. She states she feels as if she is more anemic again, but deniesbleeding/melena. Adds that her work has been crazy and is weighing onher. 06/28/18 Intolerant to Rosuvastatin due to severe leg cramps and had tostop. Got Livalo approved for a year from PCP could not tolerate 2mg butok on 1mg +CQ10 200mg. HAS been consistently on 1mg now x 2 months. HAvingmore issues with trigeminal neuralgia started on Gabapentin, still anissue. Trouble sleeping due to restless legs and TN. +weight gain, CHIU's.Work has been rough extending to 10.5hr and 12hr days. 11/03/18 Rosuvastatin increased to 20mg by PCP and [employer] as well hashelped so no myalgias as yet, tolerating fine. No CP, SOB, dizziness.Doing fairly well. Seeing Neuro on a routine basis. Pt contemplatingobtaining a calcium score and inquired about my opinion. 05/11/19 Doing ok has numerous musculoskeletal complaints in L triggerthumb, neck pain, L arm pain. Trouble sleeping. Sees Neuro. Still w/ occCP sharp pains only lasts a few seconds no other assoc sxs. No syncope.Jacques meds. Had some dizziness which has resolved now thought related toGabapentin for a time but very little in general. Only toleratingRosuvastatin 10mg qhs and CoQ10 LDL 96 03/08/19. 11/16/19 Still having soreness in left upper chest near axilla, dizzinessintermittently as well. No significant changes. Tired, not much energyespecially outdoors. CP more pressure under L axilla bra makes it worsetoday like this AM different her typicaly sharp brief CP, constant noworse lasted 30- 45 minutes, no other assoc sxs of nausea, SOB sometimesnoted when she eats but not always, typically occurs just sitting inchair. Having R sided CHIU now which is different as well. No myalgias legscramps due to statin due to increase in CoQ10 to 200mg daily, she on [employer] ASA to 325mg daily out of concern for pandemic and her history shestates. BMP, CBC, TSH in September all normal. She feels slept poorly lastnight in ia weird position and know if she took off her bra this wouldhelp her chest/axilla discomfort and she also adds she has C6 spinalissues. 02/27/20 Feeling well. No new complaints. Denies chest pain, exertionaldyspnea, palpitations, dizziness, near syncope and/or syncope. No edema.Tolerating medications well without difficulty. States being retired helpsa lot. No concerns. On her own increased ASA to 325mg due to COVIDpsychological for her she states. 09/03/20 Doing well but Fe def anemia but has not tolerated Fe in past soinc Fe in diet and energy improved. Had COVID vaccine no issues. Gets occrandom localized pain in upper left chest thinks indigestion thinksrelated to butterscotch candies but when wasn't eating them no issues. Noassociation with activity. Has a diet coke in AM and notes caffeinetriggers. Breathing fine no bleeding. Plans to increase activity. 03/11/21 Feels more tired and dizziness when off Fe supplements butotherwise gives her constipation. Doing ok otherwise, thinking abouttaking Colace. Hgb 01/29/21 12.8. She increased ASA to 3x 81mg daily due toscare with pandemic. Notes she does not tolerate chocolate well. CP undercontrol no real issues, none since taking inc ASA. 09/15/21 stared having more myalgias and muscle cramps so reduced to 5mgRosuvastatin but still having occ cramps which can be quite bothersome. OncoQ 10 200mg daily thought about inc to 200mg BID. Varicose veins shenotes. No sig issues with CP gaudencio of late thinks may have been caffeine. 03/23/22 Lipids poorly controlled on Rosuvastatin 5mg every day. LDL toohigh and intolerable joint/myalgias so now trying to tolerate 10mg altwith 5mg but sxs returning on 10mg daily she is watching sxs now. Doing okotherwise. No sig CP or SOB or palps. No near syncope or syncope. Onlygets CP with white chocolate or coffee, etc. Overuse hand pain as apharmacist. 08/17/22 Went to ER on Tuesday with CHIU heaviness in chest SBP 199mmHg. Hasnot been following her diet more sodium in diet BP typically 110 or lowerand gets dizzy. Trying to cut down. Had not been feeling right past fewweeks. She has muscle bone pain chest wall she thinks related to how shehas been sleeping. Started back on Lisinopril 10mg Tuesday night toleratingwell. 12/22/22 back to having vertigo sxs or dizziness/lightheadedness sheadmitted to a component of vertigo has to stop all of a sudden hold on tosomething for a few seconds. No syncope. BP as low 98mmHg thinksLisinopril might be contributing. Had MRI unchanged from 2016 small vesselischemic disease. Seeing Neurology who ordered MRI. Also had pain in UpperL chest hurts to push on chest wall 02/25/23 [facility] visit- she is here for two-month follow-up. Her dizziness hasresolved after stopping lisinopril completely. She also realized she issensitive to foods that are rich in niacin and attributes feeling betterto restricting some niacin in her diet. She has no complaints of any chestpain, shortness of breath or palpitations. She is had several days ofsinus congestion after being around grandchildren that have had earinfections that required antibiotic treatment. 09/15/2023 [facility] visit: She is here for routine follow-up. Dizziness remainsmuch better being off lisinopril but she still has some intermittentepisodes she thinks may be more accurately described as temporaryalteration in her spatial awareness, does not last long, and seems tocorrelate with her blood pressure going down although she can not identifyany kind of trigger to cause the blood pressure to lower. 10/29/24 initial office visit: She reports spatial disorientation, not dizziness but feels like couldfall if kept moving no near syncope or syncope. Sxs occur when she exertsherself generally ok with ADL's. She gets spells of sig fatigue thenimproves 1-2x every 2-3 weeks. No palps, no SOB. No longer exercising justtakes it our of her. Gets terrible cramping in legs with activity. BPvariable. BP 130's at home. During spells yesterday took BP 106mmHg. Didnot tolerate Amlodipine, Metoprolol jacques well did not work though. PCPreduced Rosuvastatin to 5mg due to cramps which is slightly improved butnot resolved and has FLP upcoming. Still taking CoQ10 200mg daily. Nottaking anything for BP at present. Wears compression stockings on L leghad remote laser procedure. Staying hydrated. Medications: Current Outpatient Medications on File Prior to Visit Medication Sig Dispense Refill magnesium OXIDE 250 mg magnesium Tablet Take 800 mg by mouth daily atbedtime. pedi multivit no.58-iron fum 18 mg iron Tablet, Chewable Take by mouth. aspirin (ECOTRIN EC) 81 mg Tablet, Delayed Release (E.C.) Take 81 mg bymouth daily. rosuvastatin (CRESTOR) 5 mg tablet Take 5 mg by mouth daily. Coenzyme Y90-Wetjypm E 100-5 mg-unit Capsule Take 2 Tablets by mouthdaily. cholecalciferol, vitamin D3, 1,000 unit Take 2,000 mcg by mouth daily. No current facility-administered medications on file prior to visit. Review of Systems: Neurologic: The patient denies any history of seizure or stroke. Eyes: Patient denies any conjunctival icterus. Ears: Patient denies any ear pain or drainage. Nose: Patient denies any epistaxis or rhinorrhea. Throat: Patient denies sore throat or change in voice. Cardiovascular: Per HPI. Respiratory: The patient denies any chronic cough or hemoptysis. Gastrointestinal: The patient denies any nausea, vomiting, diarrhea orconstipation. Genitourinary: Patient denies any dysuria or hematuria. Musculoskeletal: Patient denies any pain, lower leg edema. Psychiatric: Patient denies any depression or anxiety. Hematologic: Patient denies any history of cancer. The remainder of the review of systems is negative or as noted in theHPI. Physical Examination: BP (!) 186/96 (Patient Position (BP): Supine) Pulse 60 Ht 5' 9(1.753 m) Wt 78 kg (172 lb) SpO2 99% BMI 25.40 kg/m @IOBRIEF@ General appearance: very pleasant WF alert, cooperative, no distress,appears stated age Head: Atraumatic, normocephalic, without obvious abnormality, atraumatic Mouth: Oral mucosa moist Eyes: Sclera are non-icteric Nose: Nares normal. Septum midline. Neck: Supple, symmetrical, trachea midline, no adenopathy, no carotidbruit and no JVD Lungs: Clear to auscultation bilaterally, no rales or wheezes Heart: RRR , S1, S2 normal, no murmur, click, rub or gallop Abdomen: Soft, non-tender. Bowel sounds normal. No masses, Noorganomegaly Extremities: Extremities warm and well-perfused, no cyanosis, varicoseveins, no sig edema Pulses 2+ and symmetric Neurologic: Grossly normal. Alert and oriented x3. Psychiatric: Mood calm and appropriate Skin: No rashes or bruises. Data Review: Chemistry: No results found for: NA, K, CL, CO2, BUN, CREAT, CA CBC: No results found for: WBC, RBC, HGB, HCT, PLT Lipid Panel: No results found for: CHOLTOT, HDL, LDLCALC, LDLDIRECT,TRIGLYCERIDE 01/21/23 2D Echo: Conclusions: Normal left ventricular size. Mild concentric left ventricularhypertrophy. Normal global left ventricular systolic function. Impaired diastolic relaxation Grade I.Ejection fraction is measured at 60 %. Global Longitudinal Strain is -17 %. Normal right ventricular size. Normal right ventricular systolic function. There is mild enlargement of left atrium. Moderate mitral annular calcification. Mild to moderate mitral valveregurgitation. Estimated peak RVSP is 28 mmHg. Mild tricuspid regurgitation. EKG Date/Time: 10/29/2024 10:45 AM Performed by: Mark Leal MD Authorized by: Mark Leal MD Comments: Sinus bradycardia 55bpm baseline artifact first-degree AV block WY 212 ms QRS 106 ms QTcorrected 4.7 ms, borderline ECG The ASCVD Risk score (Rony GARCIA, et al., 2019) failed to calculate for thefollowing reasons: Risk score cannot be calculated because patient has a medical historysuggesting prior/existing ASCVD I have personally reviewed the patient's electronic medical record,pertinent imaging, laboratory studies, and medication list. Mark Leal MD This note was dictated and transcribed using WinWeb Speech Recognitionsoftware. Financial Aid Advisor variances may occur. Despite proofreading,typographical errors may occur. us Mark Leal MD ECG ORDERABLES Final Re sult [facility] [address] [place]# [id number] [place] [address] from Last 3 Months Insurance [facility] [id number] Care Teams Certified Phlebotomist Relationship Specialty Start Date End Date Nancy Bertrand MD [address] [facility] [address] [place] [address] PCP - General Family Practice 10/29/24
--- OUTSIDE RECORDS SUMMARY | 2024-12-17 09:04 | XMS_ITS | Encounter Summary ---
Author Organization [facility] Address [address] [place] [address] Care Team Providers Care Executive Chef Name Role Phone Abdifatah Moss DO Primary Care Provider + Ann Marie Short MD Unavailable Owen Sahni DO Unavailable [phone] Drea Lewis MD Unavailable [phone] Mark Leal MD Unavailable Abdifatah Moss DO Unavailable [phone] Abdifatah Moss DO Unavailable [phone] Nancy Bertrand MD Unavailable [phone] Nancy Bertrand MD Primary Care Provider [phone] Nancy Bertrand MD Unavailable Nancy Bertrand MD Unavailable Aleena Bosch MA Unavailable Nancy Bertrand MD Unavailable Aleena Bosch MA Unavailable Aleena Bosch MA Unavailable Encounter Details Date Type Department Care Team (Late st Contact Info) Description 11/06/2008 [facility]NAL [facility] [place] [address] [place] [address] Social History Tobacco Use Types Packs/Day Years Used Date Smoking Tobacco: Never Alcohol Use Standard Drinks/Week Comments No 0 (1 standard drink = 0.6 oz pur e alcohol) Comments No Sex and Gender Information Value Date Recorded Sex Assigned at Not on file 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 Gender Identity Not on file Sexual Orientation Not on file documented as of this encounter Plan of Treatment Upcoming Encounters Date Type Department Care Team (Late st Contact Info) Description 02/05/2025 9:10 AM CDT Office Visit [facility] Orthopedics [address] [place], [place] [phone] Oralia Alford MD [address] [facility] [address] [place] [address] 03/01/2025 9:00 AM PARKING LOT SPOTTER Office Visit [facility] Medical Group - Internal Medicine [address] [place] [phone] Nancy Bertrand MD [address] [phone] documented as of this encounter Visit Diagnoses Not on filedocumented in this encounter Care Teams Executive Chef Relationship Specialty Start Date End Date Abdifatah Moss DO PCP - General 11/27/07 08/19/22 Abdifatah Moss DO [address] [place] [address] PCP - Attributed-[facility] 09/23/18 04/09/21 Abdifatah Moss DO [address] [place] [address] PCP - Attributed-[place] 05/26/21 06/12/22 Nancy Bertrand MD [address] [place] [phone] PCP - Attributed-[place] 06/23/22 02/09/23 Nancy Bertrand MD [address] [place] [phone] PCP - General Family Medicine 08/20/22 Nancy Bertrand MD [address] [place] [phone] PCP - Attributed-[place] 06/24/23 07/14/23 Nancy Bertrand MD [address] [place] [phone] PCP - Attributed-[place] 07/25/23 Nancy Bertrand MD [address] [place] [phone] PCP - Attributed-[facility] P4P 07/25/23 10/05/23 Ann Marie Short MD Orthopedic Surgery 03/16/13 Owen Sahni DO Neurology 08/17/13 Drea Lewis MD [address] [place] [address] Medical Appointment Scheduler Family Medicine 11/23/12 Mark Leal MD [facility] [facility] [address] [place] [address] Cardiovascular Disease 02/18/16 Aleena Bosch MA Care Coordination Specialist Care Management 08/15/23 08/15/23 Aleena Bosch MA Care Coordination Specialist Care Management 03/05/24 04/19/24 Aleena Bosch MA Care Coordination Specialist Care Management 05/28/24 06/05/24 documented as of this encounter
--- OUTSIDE RECORDS SUMMARY | 2024-12-17 09:04 | XMS_ITS | Encounter Summary ---
Author Organization [facility] Address [address] [facility] [place] [address] Care Team Providers Care Welder Setter Electron Beam Machine Name Role Phone Ann Marie Short MD Unavailable Owen Sahni DO Unavailable [phone] Drea Lewis MD Unavailable [phone] Mark Leal MD Unavailable Nancy Bertrand MD Primary Care Provider [phone] Nancy Bertrand MD Unavailable Reason for Visit * Reason Onset Date Comments Question 08/28/2024 Encounter Details Date Type Department Care Team (Late st Contact Info) Description 08/28/2024 Telephone [facility] Medical [facility] - Internal Medicine [address] [place] [phone] Nancy Bertrand MD [address] [place] [phone] Question Social History Tobacco Use Types Packs/Day Years Used Date Smoking Tobacco: Never Smokeless Tobacco: Never Alcohol Use Standard Drinks/Week Comments No 0 (1 standard drink = 0.6 oz pur e alcohol) PHQ-2 Answer Date Recorded Patient Health Questionnaire-2 Score 0 08/24/2024 Comments No Sex and Gender Information Value Date Recorded Sex Assigned at Not on file Legal Sex 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 Answer Date of Assessment Author No 03/11/2017 11:16 AM Moisés Sandhu RN * Is person blind or have serious difficulty seeing? Answer Date of Assessment Author No 03/11/2017 11:16 AM Moisés Sandhu RN * Does person have serious difficulty walking/climbing stairs? Answer Date of Assessment Author No 03/11/2017 11:16 AM Moisés Sandhu RN * Does person have difficulty dressing/bathing? Answer Date of Assessment Author No 03/11/2017 11:16 AM Moisés Sandhu RN * Does person have difficulty doing errands alone? Answer Date of Assessment Author No 03/11/2017 11:16 AM Moisés Sandhu RN documented as of this encounter Mental Status * Does person have difficulty concentrating/remembering/making decisions? Answer Entry Date Author No 03/11/2017 11:16 AM Moisés Sandhu RN documented in this encounter Miscellaneous Notes * Telephone Encounter - Terese Knox MA - 08/28/2024 8:30 AM CDT Who is calling? self What is the reason for call? Pt called stating she would like to know if Dr. Bertrand can send a script to the [facility] on file for rosuvastatin 5mg daily #90 instead of the 10mg every other day. She has trouble remembering the every other day. Expected Response from the Clinic? Call back Did you notify caller it would take 24-48 hours for the office to get back to them? YES documented in this encounter Plan of Treatment Upcoming Encounters Date Type Department Care Team (Late st Contact Info) Description 02/05/2025 9:10 AM CDT Office Visit [facility] Health Orthopedics [address] [place] [address] Oralia Alford MD [address] [place] [address] 03/01/2025 9:00 AM CERTIFIED MASTER SAFE TECHNICIAN Office Visit [facility] - Internal Medicine [address] [phone] Nancy Bertrand MD [address] [phone] documented as of this encounter Goals Goal Patient Goal Type Associated Problems Recent Progress Patient-Stated? Author Blood Pressure < 140/90 Blood Pressure 140/88( 025 8:50 AM CDT) Drea Webb MA documented as of this encounter Visit Diagnoses Diagnosis Mixed hyperlipidemia documented in this encounter Care Teams Welder Setter Electron Beam Machine Relationship Specialty Start Date End Date Nancy Bertrand MD [address] [place] [phone] PCP - General Family Medicine 08/20/22 Nancy Bertrand MD [address] [place] [phone] PCP - Attributed-[facility] 07/25/23 Ann Marie Short MD Orthopedic Surgery 03/16/13 wOen Sahni DO Neurology 08/17/13 Drea Lewis MD [facility] [place] [address] Airway Controller Family Medicine 11/23/12 Mark Leal MD [address] [place] [address] [place] [address] Cardiovascular Disease 02/18/16 documented as of this encounter
--- OUTSIDE RECORDS SUMMARY | 2024-12-17 09:04 | XMS_ITS | Encounter Summary ---
Author Organization [facility] Health Address [address] [facility] [address] Care Team Providers Care Insurance Territory Manager Name Role Phone Abdifatah Moss DO Primary Care Provider + Ann Marie Short MD Unavailable Owen Sahni DO Unavailable [phone] Drea Lewis MD Unavailable [phone] Mark Leal MD Unavailable Abdifatah Moss DO Unavailable Abdifatah Moss DO Unavailable [phone] Nancy Bertrand MD Unavailable [phone] Nancy Bertrand MD Primary Care Provider Nancy Bertrand MD Unavailable Nancy Bertrand MD Unavailable [phone] Aleena Bosch MA Unavailable Nancy Bertrand MD Unavailable [phone] Aleena Bosch MA Unavailable Aleena Bosch MA Unavailable Encounter Details Date Type Department Care Team (Late st Contact Info) Description 04/15/2011 [facility] Abdifatah Moss DO [address] [place] [address] Social History Tobacco Use Types Packs/Day Years Used Date Smoking Tobacco: Never Smokeless Tobacco: Never Alcohol Use Standard Drinks/Week Comments No 0 (1 standard drink = 0.6 oz pur e alcohol) Comments No Sex and Gender Information Value Date Recorded Sex Assigned at Not on file 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 Gender Identity Not on file Sexual Orientation Not on file documented as of this encounter Plan of Treatment Upcoming Encounters Date Type Department Care Team (Late st Contact Info) Description 02/05/2025 9:10 AM CDT Office Visit [facility] Orthopedics [address] [place], [place] [id number] Oralia Alford MD [address] [place] [address] 03/01/2025 9:00 AM MAIL HANDLER ASSISTANT Office Visit [facility] - Internal Medicine [address] [place] [phone] Nancy Bertrand MD [address] [place] [phone] documented as of this encounter Visit Diagnoses Not on filedocumented in this encounter Care Teams Insurance Territory Manager Relationship Specialty Start Date End Date Abdifatah Moss DO PCP - General 11/27/07 08/19/22 Abdifatah Moss DO [address] [place] [address] PCP - Attributed-[facility] 09/23/18 04/09/21 Abdifatah Moss DO [address] [place] [place] [address] PCP - Attributed-[place] 05/26/21 06/12/22 Nancy Bertrand MD [address] [place] [phone] PCP - [place]ributed[place] 06/23/22 02/09/23 Nancy Bertrand MD [address] [place] [phone] PCP - General Family Medicine 08/20/22 Nancy Bertrand MD [address] [place] [phone] PCP - Attributed-[facility] 06/24/23 07/14/23 Nancy Bertrand MD [address] [place] [phone] PCP - [place]ributed[place] 07/25/23 Nancy Bertrand MD [address] [place] [phone] PCP - Attributed-[facility] 07/25/23 10/05/23 Ann Marie Short MD Orthopedic Surgery 03/16/13 Owen Sahni DO Neurology 08/17/13 Drea Lewis MD [address] [place] [address] Aboriginal Liaison Officer Family Medicine 11/23/12 Mark Leal MD [address] [place] [address] [place] [address] Cardiovascular Disease 02/18/16 Aleena Bosch MA Care Coordination Specialist Care Management 08/15/23 08/15/23 Aleena Bosch MA Care Coordination Specialist Care Management 03/05/24 04/19/24 Aleena Bosch MA Care Coordination Specialist Care Management 05/28/24 06/05/24 documented as of this encounter
--- OUTSIDE RECORDS SUMMARY | 2024-12-17 09:04 | XMS_ITS | Encounter Summary ---
Author Organization [facility] Address [address] [facility] [place] [address] Care Team Providers Care Auctioneer Art Name Role Phone Ann Marie Short MD Unavailable [phone] Owen Sahni DO Unavailable [phone] Drea Lewis MD Unavailable [phone] Mark Leal MD Unavailable Nancy Bertrand MD Primary Care Provider Nancy Bertrand MD Unavailable Reason for Visit * Reason Onset Date Comments Request Lab Order 08/20/2024 Encounter Details Date Type Department Care Team (Late st Contact Info) Description 08/20/2024 Telephone [facility] Medical [facility] - Internal Medicine [address] [place] [phone] Nancy Bertrand MD [address] [place] [phone] Request Lab Order Social History Tobacco Use Types Packs/Day Years Used Date Smoking Tobacco: Never Smokeless Tobacco: Never Alcohol Use Standard Drinks/Week Comments No 0 (1 standard drink = 0.6 oz pur e alcohol) PHQ-2 Answer Date Recorded Patient Health Questionnaire-2 Score 0 08/24/2024 Comments No Sex and Gender Information Value Date Recorded Sex Assigned at Not on file Legal Sex Female 5:04 AM ELECTRIC MOTOR CONTROL ASSEMBLER Gender Identity Not on file Sexual Orientation [...] encounter Miscellaneous Notes * Telephone Encounter - Noa Santiago RN - 08/21/2024 8:18 AM CDT Left detailed voicemail per HIPAA. * Telephone Encounter - Nancy Bertrand MD - 08/20/2024 6:41 PM CDT Basic labs have been ordered, please let patient know if they have any additional concerns that require labs they will need to have labs drawn again. I usually prefer labs to be ordered at the time of office visit so that any concerns can have labs drawn in addition to basic labs. * Telephone Encounter - Terese Knox MA - 08/20/2024 8:07 AM CDT Who is calling? self What is the reason for call? Pt called stating she has an appt with [employer] [employer] on 08/22/24 and would liketo get lab orders placed prior. She has a 6 month appt on 08/24/24. Expected Response from the Clinic? Call when lab orders are placed. Did you notify caller it would take 24-48 hours for the office to get back to them? NOT APPLICABLE documented in this encounter Plan of Treatment Upcoming Encounters Date Type Department Care Team (Late st Contact Info) Description 02/05/2025 9:10 AM CDT Office Visit [facility] Orthopedics [address] [place], [place] [phone] Oralia Alford MD [address] [facility] [address] [place] [address] 03/01/2025 9:00 AM ELECTRIC MOTOR CONTROL ASSEMBLER Office Visit [facility] - Internal Medicine [address] [place] [phone] Nancy Bertrand MD [address] [place] [phone] Scheduled Orders Name Type Priority Associated Diagnoses Orde r Schedule CBC WITH DIFFERENTIAL Lab Routine Screening for deficiency anemia Ordered: 08/20/2024 documented as of this encounter Goals Goal Patient Goal Type Associated Problems Recent Progress Patient-Stated? Author Blood Pressure < 140/90 Blood Pressure 140/88( 025 8:50 AM CDT) No Drea Maynard MA documented as of this encounter Visit Diagnoses Diagnosis Screening for hyperlipidemia- Primary Screening for lipoid disorders Screening for diabetes mellitus Screening for deficiency anemia Screening for other and unspecified deficiency anemia documented in this encounter Care Teams Auctioneer Art Relationship Specialty Start Date End Date Nancy Bertrand MD [address] [place] [phone] PCP - General Family Medicine 08/20/22 Nancy Bertrand MD [address] [address] [address] [place] [address] PCP - Attributed-[facility] 07/25/23 Ann Marie Short MD Orthopedic Surgery 03/16/13 Owen Sahni DO Neurology 08/17/13 Drea Lewis MD [address] [place] [phone] Swager Operator Family Medicine 11/23/12 Mark Leal MD [address] [place] [address] [place] [address] Cardiovascular Disease 02/18/16 documented as of this encounter
--- OUTSIDE RECORDS SUMMARY | 2024-12-17 09:04 | XMS_ITS | Encounter Summary ---
Author Organization [facility] Address [address] [facility] [place] [address] Care Team Providers Care Bobbin Cleaning Machine Operator Name Role Phone Ann Marie Short MD Unavailable Owen Sahni DO Unavailable Drea Lewis MD Unavailable [phone] Mark Leal MD Unavailable Nancy Bertrand MD Primary Care Provider Nancy Bertrand MD Unavailable [phone] Encounter Details Date Type Department Care Team (Late st Contact Info) Description 11/27/2024 Results Follow-Up 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 Orthopedics [address] [place] [address] Oralia Alford MD [facility] [address] [facility] [address] [place] [address] 03/01/2025 9:00 AM ADOLESCENT COUNSELOR Office Visit [facility] - Internal Medicine [address] [place] [phone] Nancy Bertrand MD [address] [place] [address] [address] [place] [phone] documented as of this encounter Goals Goal Patient Goal Type Associated Problems Recent Progress Patient-Stated? Author Blood Pressure < 140/90 Blood Pressure 140/88( 025 8:50 AM CDT) No Drea Maynard MA documented as of this encounter Visit Diagnoses Not on filedocumented in this encounter Care Teams Bobbin Cleaning Machine Operator Relationship Specialty Start Date End Date Nancy Bertrand MD [address] [place] [phone] PCP - General Family Medicine 08/20/22 Nancy Bertrand MD [address] [place] [phone] PCP - Attributed-[facility] 07/25/23 Ann Marie Short MD Orthopedic Surgery 03/16/13 Owen Sahni DO Neurology 08/17/13 Drea Lewis MD [facility] [place] [address] Instrument Person Family Medicine 11/23/12 Mark Leal MD [facility] [facility] [address] [place] [address] Cardiovascular Disease 02/18/16 documented as of this encounter
--- OUTSIDE RECORDS SUMMARY | 2024-12-17 09:04 | XMS_ITS | Clinical Summary ---
Author Organization [facility] Address [address] [place] [place] [address] Care Team Providers Care Plate Washer Name Role Phone Ann Marie Short MD Unavailable [phone] Owen Sahni DO Unavailable [phone] Drea Lewis MD Unavailable [phone] Mark Leal MD Unavailable Nancy Bertrand MD Primary Care Provider Nancy Bertrand MD Unavailable Source Comments [facility],non-owned Affiliates and Associated Physician Practices is amultiple site organization consisting of ambulatory clinics and hospital sitesin [place], [place], [place] and [place]. This disclosure is being madepursuant to the Care Everywhere program and may not contain all information available regarding this patient. Last updated 18.[facility] Allergies Active Allergy Reactions Criticality Noted Date Comments Amlodipine Bleeding 03/04/2024 Ezetimibe Other 09/03/2020 Lisinopril Cough 04/26/2024 Pravastatin Myalgias 02/27/2018 Simvastatin Myalgias 02/27/2018 Medications * Be aware that medications may not be up to date on this document. Alwaysverify current medications with the patient. aspirin 81 MG tablet Take 1 (one) tablet by mouth once daily Active Coenzyme Q10 (CO Q 10) 100 MG Take 2 tablets by mouth once daily Active magnesium 250 MG tablet Take 400 mg by mouth 2 times daily Active Vitamin D, Cholecalciferol, 1000 UNITS Take 80 (eighty) tablets by mouth once daily Active DOCUSATE CALCIUM PO Active Ferrous Fumarate (Iron) 18 MG Active rosuvastatin (Crestor) 5 MG tabletIndications:M ixed hyperlipidemia Take 1 (one) tablet by mouth once daily 100 tablet 3 5 Active Active Problems Problem Noted Date Diagnosed Date History of essential hypertension 02/23/2024 Prediabetes 02/23/2024 History of cerebrovascular accident 02/23/2024 Essential hypertension 02/23/2024 Osteopenia of both hips 11/17/2023 Vaccination declined by patient 08/19/2023 Age-related osteoporosis wit hout current pathological fracture 08/19/2023 Chronic superficial venous t hrombosis of left lower extremity 08/19/2023 Hyponatremia 08/16/2023 Cerebrovascular accident (CV A) due to thrombosis of precerebral artery 09/23/2021 Overview (09/23/2021): Abdifatah Moss DO Found in ov notes 02/03/21 Senile purpura 08/10/2021 Overview (09/23/2021): Abdifatah Moss DO Found in OV notes 08/10/21 Pain in joint, multiple sites 01/07/2016 Knee strain 03/28/2013 Left knee pain 03/16/2013 Iron deficiency anemia 01/17/2013 Chronic rhinitis 10/19/2012 History of CVA (cerebrovascular accident) 2010 Overview (09/05/2019): 03/02/19 Abdifatah Moss DO Cerebrovascular accident (CVA) due to thrombosis of precerebral artery Malaise and fatigue 10/10/2009 Essential hypertension, benign 02/05/2009 Hypercholesteremia 09/04/2008 Hyperlipidemia 09/04/2008 Screening for condition 09/04/2008 Overview (01/23/2015): Dexa Scan (Bone Density): Result: Not avail in chart Date: 03/2007 Pap Smear: Result: Not avail in chart Date: 04/2007 Mammogram: Result: Not avail in chart Date: 09/2007 Resolved Problems Problem Noted Date Diagnosed Date Resolved Date Hypertension 09/04/2008 02/05/2009 Arthralgia 09/04/2008 09/23/2021 Encounters Date Type Department Care Team Description 11/27/2024 Results Follow-Up [facility] Internal Medicine [address] [place] [phone] Oliva Camara, NUCLEAR POWER PLANT ENGINEER-ENTRY LEVEL SALES CONSULTANT 11/16/2024 Telephone [facility] Internal Medicine [address] [place] [phone] Nancy Bertrand MD Results; Med Question 11/14/2024 Orders Only [facility] Internal Medicine [address] [place] [phone] Nancy Bertrand MD from Last 3 Months Immunizations Immunization Administration Dates Next Due DPT 11/04/2010 PNEUMOCOCCAL PPSV23 08/10/2021 Social History Tobacco Use Types Packs/Day Years Used Date Smoking Tobacco: Never Smokeless Tobacco: Never Tobacco Cessation:Counseling Given: Not Answered Alcohol Use Standard Drinks/Week Comments No 0 (1 standard drink = 0.6 oz pur e alcohol) PHQ-2 Answer Date Recorded Patient Health Questionnaire-2 Score 0 11/20/2024 Comments No Sex and Gender Information Value Date Recorded Sex Assigned at Not on file Legal Sex Female 5:04 AM CURRICULUM AND ASSESSMENT COORDINATOR Gender Identity Not on file Sexual Orientation Not on file Last Filed Vital Signs Vital Sign Reading Time Taken Comments Blood Pressure 140/88 08/24/2024 8:50 AM CDT Pulse 65 08/24/2024 8:50 AM CDT Temperature 36.8 C (98.3 F) 06/01/2024 11:13 AM CURRICULUM AND ASSESSMENT COORDINATOR Respiratory Rate 18 08/24/2024 8:50 AM CDT Oxygen Saturation 99% 08/24/2024 8:50 AM CDT Inhaled Oxygen Concentration 21% 10/19/2012 9 :33 AM CDT roomair Weight 76.7 kg (169 lb) 08/24/2024 8:50 AM CDT Height 175.3 cm (5' 9) 06/01/2024 11:13 AM CURRICULUM AND ASSESSMENT COORDINATOR Body Mass Index 24.96 06/01/2024 11:13 AM CURRICULUM AND ASSESSMENT COORDINATOR Plan of Treatment Upcoming Encounters Date Type Department Care Team (Late st Contact Info) Description 02/05/2025 9:10 AM CDT Office Visit [facility] Orthopedics [address] [place] [address] Oralia Alford MD [address] [place] [address] 03/01/2025 9:00 AM CURRICULUM AND ASSESSMENT COORDINATOR Office Visit [facility] Medical [facility] - Internal Medicine [address] [place] [address] Nancy Bertrand MD [address] [place] [address] [address] [place] [address] Health Maintenance Due Date Last Done Comments COLOGUARD (AGES 45-75) - COLON CA SCREENING 1953 CT COLONOGRAPHY - COLON CA SCREENING 1955 FIT - COLON CA SCREENING 1955 FLEX SIG - COLON CA SCREENING 1955 ZOSTER VACCINE (1 of 2) 08/26/2003 Respiratory Syncytial Virus (RSV) Vaccine Pt: or over 60 yrs (1 - Risk 60-74 years 1-dose series) 2013 DTAP/TDAP/TD VACCINES (2 - Tdap) 11/04/2020 11/04/2010 PNEUMOCOCCAL VACCINE 50+ (2 of 2 - PCV) 08/10/2022 08/10/2021 COVID-19 VACCINE ( - season) 2023 01/17/2021, 07/08/2020, 06/17/2020 INFLUENZA VACCINE (#1) 2024 MAMMOGRAM 12/14/2025 12/15/2023, 07/0 12/2021, 09/02/2020, Additional history exists COLON MONITORING 01/02/2029 01/03/2024, , 11/17/2018, Additional history exists Colorectal Cancer Screening 01/02/2029 COLONOSCOPY - COLON CA SCREENING 01/02/2034 01/03/2024, 11/17/2018, 11/17/2018, Additional history exists HEPATITIS C SCREENING Completed 02/18/2017 BONE DENSITY TESTING Completed 03/07/2023 DEPRESSION SCREENING Completed 06/01/2024, 08/19/2023, 08/20/2022, Additional history exists MEDICARE AWV CALENDAR YEAR Completed 08/24/2024, 08/19/2023, 08/20/2022, Additional history exists HEPATITIS B VACCINE Aged Out No longe r eligible based on patient's age to complete this topic HIB VACCINE Aged Out No longer eligi ble based on patient's age to complete this topic HPV VACCINE Aged Out No longer eligi ble based on patient's age to complete this topic MENINGOCOCCAL (Group B) VACCINE SHARED DECISION-MAKING Aged Out No longer eligible based on patient's age to complete this topic MENINGOCOCCAL GROUPS A/C/Y/W VACCINE Aged Out No longer eligible based on patient's age to complete this topic Goals Goal Patient Goal Type Associated Problems Recent Progress Patient-Stated? Author Blood Pressure < 140/90 Blood Pressure 140/88( 025 8:50 AM CDT) Drea Webb MA Procedures Procedure Name Priority Date/Time Associated Diagnosis Comments HEMOGLOBIN A1C 11/14/2024 8:02 AM CDT CBC W AUTO DIFFERENTIAL 11/14/2024 8:02 AM CDT COMPREHENSIVE METABOLIC PANEL 11/14/2024 8:02 AM CDT LIPID PROFILE 11/14/2024 8:02 AM CDT COLONOSCOPY 01/03/2024 MAMMOGRAM 12/15/2023 DEXA BONE DENSITY AXIAL SKELETON Routine 03/07/2023 1:00 PM CURRICULUM AND ASSESSMENT COORDINATOR Menopause HEPATITIS C ANTIBODY Routine 02/18/2017 8:49 AM CDT Essential hypertension, benign Hypercholesteremia Malaise and fatigue Iron deficiency anemia due to chronic blood loss from Last 3 Months or Most Recently Relevant to Health Maintenance Results * (ABNORMAL) HEMOGLOBIN A1C (11/14/2024 8:02 AM CDT) Pathologist [facility] Hemoglobin A1c 5.7(H) <5.7 % of total Hgb [facility] Comment: For someone without known diabetes, a hemoglobin A1c value between 5.7% and 6.4% is consistent with prediabetes and should be confirmed with a follow-up test. For someone with known diabetes, a value <7% indicates that their diabetes is well controlled. A1c targets should be individualized based on duration of diabetes, age, comorbid conditions, and other considerations. This assay result is consistent with an increased risk of diabetes. Currently, no consensus exists regarding use of hemoglobin A1c for diagnosis of diabetes for children. REPORT COMMENT: FASTING:YES Test Performed at: [facility] [address] JOSE RAUL BAEZA MD 11/14/2024 8:02 AM CDT 11/14/2024 8:03 AM CDT us Nancy Bertrand MD LAB - CHEMISTRY ORDERABLES Fi nal Result [address] [address] * (ABNORMAL) CBC WITH DIFFERENTIAL (11/14/2024 8:02 AM CDT) [facility] White Blood Cell Count 5.2 3.8 - 10.8 Thousand/ uL [facility] RBC 4.66 3.80 - 5.10 Million/u L [facility] Hemoglobin 12.7 11.7 - 15.5 g/dL [facility] Hematocrit 40.3 35.0 - 45.0 % [facility] MCV 86.5 80.0 - 100.0 fL [facility] MCH 27.3 27.0 - 33.0 pg [facility] MCHC 31.5(L) 32.0 - 36.0 g/dL [facility] Comment: For adults, a slight decrease in the calculated MCHC value (in the range of 30 to 32 g/dL) is most likely not clinically significant; however, it should be interpreted with caution in correlation with other red cell parameters and the patient's clinical condition. RDW 12.5 11.0 - 15.0 % [facility] Platelet Count 208 140 - 400 Thousand/ uL [facility] MPV 10.0 7.5 - 12.5 fL [facility] Neutrophil Absolute 3198 1500 - 7800 cells/uL [facility] Lymphocytes Absolute 1264 850 - 3900 cells/uL [facility] Absolute Monocytes 556 200 - 950 cells/uL [facility] Eosinophils Absolute 151 15 - 500 cells/uL [facility] Basophils Absolute 31 0 - 200 cells/uL [facility] Granulocytes % 61.5 % [facility] Lymphocytes % 24.3 % [facility] Monocytes % 10.7 % [facility] Eosinophils % 2.9 % [facility] Basophils % 0.6 % [facility] Comment: Test Performed at: [facility] [address] JOSE RAUL BAEZA MD 11/14/2024 8:02 AM CDT 11/14/2024 8:03 AM CDT us Nancy Bertrand MD LAB - HEMATOLOGY ORDERABLES F inal Result [address] [address] * (ABNORMAL) COMPREHENSIVE METABOLIC PANEL (11/14/2024 8:02 AM CDT) Glucose 82 65 - 99 mg/dL [facility] Comment: Fasting reference interval BUN 12 7 - 25 mg/dL [facility] Creatinine 0.62 0.60 - 1.00 mg/dL [facility] eGFR by Cystatin C 95 > OR = 60 mL/min/1. 73m2 [facility] BUN/Creatinine Ratio SEE NOTE: 6 - 22 (calc) [facility] Comment: Not Reported: BUN and Creatinine are within reference range. Sodium 132(L) 135 - 146 mmol/L [facility] Potassium 4.3 3.5 - 5.3 mmol/L [facility] Chloride 96(L) 98 - 110 mmol/L [facility] CO2 29 20 - 32 mmol/L [facility] Calcium 9.2 8.6 - 10.4 mg/dL [facility] Protein Total 6.8 6.1 - 8.1 g/dL [facility] Albumin 4.1 3.6 - 5.1 g/dL [facility] Globulin Total 2.7 1.9 - 3.7 g/dL (calc) [facility] Albumin/Globulin Ratio 1.5 1.0 - 2.5 (calc) [facility] Bilirubin Total 0.4 0.2 - 1.2 mg/dL [facility] Alkaline Phosphatase 92 37 - 153 U/L [facility] AST 23 10 - 35 U/L [facility] ALT 18 6 - 29 U/L [facility] Comment: Test Performed at: [facility] [address] JOSE RAUL BAEZA MD 11/14/2024 8:02 AM CDT 11/14/2024 8:03 AM CDT Nancy Bertrand MD LAB - CHEMISTRY ORDERABLES Fi nal Result Performing Organization Address [facility] Co de Phone Number [address] [address] * LIPID PROFILE (11/14/2024 8:02 AM CDT) Cholesterol 183 <200 mg/dL [facility] HDL Cholesterol 76 > OR = 50 mg/dL [facility] Triglycerides 69 <150 mg/dL [facility] LDL Calculated 91 mg/dL (calc) [facility] Comment: Reference range: <100 Desirable range <100 mg/dL for primary prevention; <70 mg/dL for patients with CHD or diabetic patients with > or = 2 CHD risk factors. LDL-C is now calculated using the Abdiel-Jannet calculation, which is a validated novel method providing better accuracy than the Friedewald equation in the estimation of LDL-C. Abdiel SS et al. ZURI. 2013;310(19): 8950-8971 (http://education.[employer]/faq/KFA199) CHOL/HDLC RATIO 2.4 <5.0 (calc) [facility] Non HDL Cholesterol 107 <130 mg/dL (calc) [facility] Comment: For patients with diabetes plus 1 major ASCVD risk factor, treating to a non-HDL-C goal of <100 mg/dL (LDL-C of <70 mg/dL) is considered a therapeutic option. Test Performed at: [facility] [address] JOSE RAUL BAEZA MD 11/14/2024 8:02 AM CDT 11/14/2024 8:03 AM CDT Nancy Bertrand MD LAB - CHEMISTRY ORDERABLES Fi nal Result [facility] [address] [place] [address] * COLONOSCOPY (01/03/2024) 01/03/2024 Narrative 01/03/2024 Ordered by an unspecified provider. us Scanned Document SCANNING ONLY Final Result * MAMMOGRAM (12/15/2023) Anatomical Region Laterality Modality Other 12/15/2023 Narrative 12/15/2023 Ordered by an unspecified provider. us Scanned Document SCANNING ONLY Final Result * DEXA BONE DENSITY SKELETON (03/07/2023 1:00 PM CURRICULUM AND ASSESSMENT COORDINATOR) Anatomical Region Laterality Modality Mammography 03/07/2023 3:28 PM CURRICULUM AND ASSESSMENT COORDINATOR Impressions 03/07/2023 3:29 PM CURRICULUM AND ASSESSMENT COORDINATOR IMPRESSION: LUMBAR: Osteoporosis FEMUR: Moderate osteopenia right femur > Interpreting Provider: Sanjay Grossman MD on 03/07/2023 3:29 PM Narrative 03/07/2023 3:29 PM CURRICULUM AND ASSESSMENT COORDINATOR PROCEDURE: DEXA BONE DENSITY AXIAL SKELETON, DATE/TIME OF EXAM: 03/07/2023 1:04 PM, LOCATION [facility] INDICATION: Z78.0: Asymptomatic menopausal state BONE MINERAL DENSITY STUDY: COMPARISON: NONE. TECHNIQUE: Standard DEXA examination. [facility]: [employer] [facility]: [employer] QDR ([place] 3.4) [facility] [address]: [employer] 2005 INDICATION: Post menopausal female [employer] DEFINITIONS OF STANDARD DEVIATIONS RELATIVE TO THE MEAN T- SCORE: MILD OSTEOPENIA = -1 to -1.5 MOD OSTEOPENIA = -1.5 to -2.0 SVR OSTEOPENIA = -2.0 to -2.5 OSTEOPOROSIS = -2.5 and more FINDINGS: LUMBAR: The bone mineral content of the lumbar spine, L1-L4, is 0.756 g/cm2. The T-score is -2.6 standard deviations relative to the mean for the adult T-score. On prior exam, the the adult T-score was NA. Left FEMUR: The bone mineral content of the femoral neck is 0.729 g/cm2. The T-score is -1.1 standard deviations relative to the mean for the adult T-score. On prior exam, the the adult T-score was NA. Right FEMUR: The bone mineral content of the femoral neck is 0.646 g/cm2. The T-score is -1.8 standard deviations relative to the mean for the adult T-score. On prior exam, the the adult T-score was NA. FRAX Calculation - 10 year Fracture Risks ([facility] ONLY): Frax Version 3.08: probability calculated for untreated patient. Major osteoporotic fracture, : 11% Hip fracture, : 1.9% Procedure Note Sanjay Grossman MD - 05/17/2023 PROCEDURE: DEXA BONE DENSITY AXIAL SKELETON, DATE/TIME OF EXAM: 03/07/2023 1:04 PM, LOCATION [facility] INDICATION: Z78.0: Asymptomatic menopausal state BONE MINERAL DENSITY STUDY: COMPARISON: NONE. TECHNIQUE: Standard DEXA examination. [facility]: [employer] [facility]: [employer] QDR ([place] 3.4) [facility]: [employer] 2005 INDICATION: Post menopausal female [employer] DEFINITIONS OF STANDARD DEVIATIONS RELATIVE TO THE MEAN T- SCORE: MILD OSTEOPENIA = -1 to -1.5 MOD OSTEOPENIA = -1.5 to -2.0 SVR OSTEOPENIA = -2.0 to -2.5 OSTEOPOROSIS = -2.5 and more FINDINGS: LUMBAR: The bone mineral content of the lumbar spine, L1-L4, is 0.756 g/cm2. The T-score is -2.6 standard deviations relative to the mean for theadult T-score. On prior exam, the the adult T-score was NA. Left FEMUR: The bone mineral content of the femoral neck is 0.729 g/cm2. The T-score is -1.1 standard deviations relative to the mean for theadult T-score. On prior exam, the the adult T-score was NA. Right FEMUR: The bone mineral content of the femoral neck is 0.646 g/cm2. The T-score is -1.8 standard deviations relative to the mean for theadult T-score. On prior exam, the the adult T-score was NA. FRAX Calculation - 10 year Fracture Risks ([facility] ONLY): Frax Version 3.08: probability calculated for untreated patient. Major osteoporotic fracture, : 11% Hip fracture, : 1.9% IMPRESSION: LUMBAR: Osteoporosis FEMUR: Moderate osteopenia right femur > Interpreting Provider: Sanjay Grossman MD on 03/07/2023 3:29 PM us Nancy Bertrand MD DEXA ORDERABLES Edited Result - Final * HEPATITIS C ANTIBODY (02/18/2017 8:49 AM CDT) Hepatitis C Antibody Non Reactive Non Reactive [facility] ACCOUNT BILL Comment: Non Reactive - Antibodies to Hepatitis C virus (HCV) were no t detected, result does not exclude early acute HCV infection. Blood BLOOD SPECIMEN / Unknown 02/18/2017 8:49 AM CDT 02/18/2017 Narrative Resulting Agency Comment [facility] [address] [facility] [phone] us Abdifatah Moss DO LAB - CHEMISTRY ORDERABL ES Final Result [facility] ACCOUNT BILL [address] [place] [address] from Last 3 Months or Most Recently Relevant to Health Maintenance Insurance [facility] MANAGED MEDICARE ADV SELF PAY NO INSURANCE Member Subscriber Plan / Payer (Ef fective for All Dates) Name:Nilsa Rittercrystal Elizabeth Member ID:Not on file Relation to Subscriber:Not on file Name:HIEN RITTER Glenn Subscriber ID:Not on file (Home) Address: [facility] [place] [address] Payer ID:Not on file Group ID:Not on file Type:Self Pay Address: [place], [place] Care Teams Plate Washer Relationship Specialty Start Date End Date Nancy Bertrand MD [address] [place] [phone] PCP - General Family Medicine 08/20/22 Nancy Bertrand MD [address] [place] [phone] PCP - Attributed-[facility] 07/25/23 Ann Marie Short MD Orthopedic Surgery 03/16/13 Owen Sahni DO Neurology 08/17/13 Drea Lewis MD [facility] [place] [phone] Business Services Sales Agent Family Medicine 11/23/12 Mark Leal MD [address] [facility] [address] [place] [address] Cardiovascular Disease 02/18/16
--- OUTSIDE RECORDS SUMMARY | 2024-12-17 09:04 | XMS_ITS | Clinical Summary ---
Author Organization [facility] [place] [address] Address [address] [place] [address] Care Team Providers Care Ballet Dancer Name Role Phone Nancy Bertrand MD Primary Care Provider Allergies Active Allergy Reactions Criticality Noted Date Comments Pravastatin Muscle pain Medium 02/27/2018 Simvastatin Muscle pain Medium 02/27/2018 Wnaxuti-Bus-Sen Reductase Inhibitors High Ezetimibe Muscle pain Medium 09/03/2020 Medications rosuvastatin (CRESTOR) 10 mg tablet Take 1 tablet (10 mg total) by mouth daily Active coQ10, ubiquinol, 200 mg capsule 0 Active cholecalciferol (VITAMIN D-3) 2000 unit capsule 0 Active iron 18 mg tablet 0 Active DOCUSATE CALCIUM ORAL Take 100 mg by mouth Active magnesium oxide (MAG-OX) 250 mg (150.8 mg elemental) tablet 3 Active aspirin 81 mg enteric coated tablet Take 1 tablet (81 mg total) by mouth daily Active docusate sodium (COLACE) 100 mg capsule Take 1 capsule (100 mg total) by mouth 2 (two) times a day 2 Active amLODIPine (NORVASC) 5 mg tabletIndications :Benign hypertension Take 1 tablet (5 mg total) by mouth daily 90 tablet 3 5 Active Active Problems Problem Noted Date Diagnosed Date Systolic murmur 12/22/2022 Mixed hyperlipidemia 03/11/2021 Statin myopathy 11/16/2019 Trigeminal neuralgia, atypical, left side of the face 09/01/2018 Statin intolerance 06/28/2018 Chronic fatigue 08/04/2016 Overview (09/17/2016): Chronic fatigue Chest pain at rest 08/04/2016 Overview (09/17/2016): Chest pain at rest Muscle pain 02/18/2016 Overview (07/28/2016): Myalgia Chronic tension-type headache, intractable 10/09 Overview (07/30/2016): Chronic tension-type headache, intractable Drug intolerance 08/06/2015 Overview (07/30/2016): Statin intolerance Orthostatic hypotension 08/06/2015 Overview (07/30/2016): Orthostatic hypotension Noncompliance with treatment 08/06/2015 Overview (07/30/2016): Noncompliance Dizziness 07/10/2014 Overview (07/30/2016): Dizziness Atypical chest pain 11/30/2013 Overview (07/30/2016): Chest pain History of heart disorder 11/30/2013 Overview (07/30/2016): H/O mitral valve prolapse History of stroke 11/30/2013 Overview (07/30/2016): H/O: CVA (cerebrovascular accident) Benign hypertension 11/30/2013 Overview (07/30/2016): HTN (hypertension), benign Paresthesia 09/26/2013 Overview (07/30/2016): Paresthesia Cervical radiculopathy 09/26/2013 Overview (07/30/2016): Cervical radiculopathy Resolved Problems Problem Noted Date Diagnosed Date Resolved Date Dyslipidemia 11/30/2013 03/11/2021 Overview (07/30/2016): Dyslipidemia Surgical History Surgery Date Site/Laterality Comments HYSTERECTOMY 04/25/2000 - 04/24/2001 Hysterectomy KNEE SURGERY WRIST SURGERY Medical History Medical History Date Comments Anemia Anemia Hx Other Medical CVA (Stroke) Hx Other Medical Headache, migra ine Tension headache Headache, tensi on Hyperlipidemia Hyperlipidemia Hypertension Hypertension Stroke (HCC) February 27, 2005 Family History Medical History Relation Name Comments Other Other No family histo ry of Coronary artery disease; Relation Name Status Comments Other Social History Tobacco Use Types Packs/Day Years Used Date Smoking Tobacco: Never Smokeless Tobacco: Never Alcohol Use Standard Drinks/Week Comments No 0 (1 standard drink = 0.6 oz pur e alcohol) AUDIT-C Answer Date Recorded Q1: How often do you have a drink containing alcohol? Never 11/23/2022 Q2: How many drinks containi ng alcohol do you have on a typical day when you are drinking? Patient does not drink Q3: How often do you have si x or more drinks on one occasion? Never 11/23/2022 Comments Unknown Sex and Gender Information Value Date Recorded Sex Assigned at Not on file Legal Sex Female 10:38 AM MESSENGER COPY Gender Identity Female 08/27/2020 3:14 PM CDT Sexual Orientation Straight 08/27/2020 3: 14 PM CDT Obstetrics History Last Filed Vital Signs Vital Sign Reading Time Taken Comments Blood Pressure 132/70 07/12/2024 8:58 AM CDT Pulse 74 07/12/2024 8:58 AM CDT Temperature 36.8 C (98.2 F) 03/03/2023 8:15 AM MESSENGER COPY Respiratory Rate 18 03/03/2023 8:15 AM MESSENGER COPY Oxygen Saturation 97% 07/12/2024 8:58 AM CDT Inhaled Oxygen Concentration - - Weight 77.1 kg (170 lb) 07/12/2024 8:58 AM CDT Height 175.3 cm (5' 9) 07/12/2024 8:58 AM CDT Body Mass Index 25.1 07/12/2024 8:58 AM CDT Plan of Treatment Health Maintenance Due Date Last Done Comments Colon Cancer Screening-Colonoscopy 1955 Depression Screening 1955 Fall Risk Assessment 1955 Hepatitis C Screening 1955 DTaP/Tdap/Td Vaccine (1 - Tdap) 1964 Hepatitis B Screening 08/26/1971 Zoster Vaccine (1 of 2) 08/26/2003 Breast Cancer Screening-Mammogram 07/28/2016 07/29/2015, 07/03/2014, 05/31/2013, Additional history exists Well Visit 65+ 2018 Pneumococcal vaccine 65+ (2 of 2 - PCV) 08/10/2022 08/10/2021 Influenza Vaccine (#1) 2024 Osteoporosis Screening-Bone Density Scan 03/07/2025 03/07/2023, 03/07/2023 Insurance UHC MEDICARE ADVANTAGE Member Subscriber Plan / Payer (Ef fective 2018-Present) Name:Hien Burrell Relation to Subscriber:Self Name:Hien Burrell Payer ID:[id number] (NAIC) Type:[facility] MED[facility] Address: [place] [phone] [facility] [place] [id number] UHC MEDICARE ADVANTAGE Care Teams Ballet Dancer Relationship Specialty Start Date End Date Nancy Bertrand MD [address] [place] [address] PCP - General Family Medicine 08/17/22
--- OUTSIDE RECORDS SUMMARY | 2024-12-17 09:04 | XMS_ITS | Encounter Summary ---
Author Organization [facility] Address [address] [place] [id number] Care Team Providers Care Transportation Project Manager Name Role Phone Abdifatah Moss DO Primary Care Provider Abdifatah Moss DO Primary Care Provider Nancy Bertrand MD Primary Care Provider Encounter Details Date Type Department Care Team (Late st Contact Info) Description 08/13/2016 Orders Only [facility] ProviderElza MD [address] [place], [place] [id number] Social History Tobacco Use Types Packs/Day Years Used Date Smoking Tobacco: Never Alcohol Use Standard Drinks/Week Comments No 0 (1 standard drink = 0.6 oz pur e alcohol) Comments Unknown Sex and Gender Information Value Date Recorded Sex Assigned at Not on file Legal Sex Female 10:38 AM DIRECTOR OF RESEARCH AND DEVELOPMENT Gender Identity Female 08/27/2020 3:14 PM CDT Sexual Orientation Straight 08/27/2020 3: 14 PM CDT documented as of this encounter Plan of Treatment Not on file documented as of this encounter Procedures Procedure Name Priority Date/Time Associated Diagnosis Comments CARDIOLOGY REPORT 08/13/2016 documented in this encounter Results * CARDIOLOGY REPORT (08/13/2016) Anatomical Region Laterality Modality Other Narrative 08/13/2016 Ordered by an unspecified provider. Historical Provider [facility] Final Result documented in this encounter Visit Diagnoses Not on filedocumented in this encounter Additional Health Concerns Infection Onset Date Last Indicated Resolved Time Exposure, COVID-19 Comment:Added automatically based on COVID19 lab answers indicating exposure risk 03/03/2023 03/03/2023 03/13/2023 3:[address] COVID: Suspected 03/03/2023 03/03/2023 03/03/2023 3:57 PM DIRECTOR OF RESEARCH AND DEVELOPMENT documented as of this encounter Care Teams Transportation Project Manager Relationship Specialty Start Date End Date Abdifatah Moss DO [address] [place] [address] PCP - General 07/23/16 02/24/20 Abdifatah Moss DO [address] [place] [address] PCP - General Family Medicine 02/25/20 08/16/22 Nancy Bertrand MD [address] [facility] [address] [place] [address] PCP - General Family Medicine 08/17/22 documented as of this encounter
== END 2024-12-17 08:47 | disposition home or self-care (01) ==
DX: Z12.31 Encounter for screening mammogram for malignant neoplasm of breast (principal)
CPT/HCPCS: 77063; 77067

== ENCOUNTER 2025-02-18 12:07 | Emergency (ER) | payer MEDICARE, SELFPAY ==
[2025-02-18 12:18] VITALS: BP 182/84; PULSE 73; RESP 16; TEMP 36.4; O2SAT 100
--- NOTE | 2025-02-18 12:32 | ED.URI ---
HPI - URI/Sore Throat General Chief Complaint: Upper Respiratory Infection Stated Complaint: Sore Throat/Cough Time Seen by Provider: 02/18/25 12:15 Source: patient and RN notes reviewed Mode of arrival: ambulatory Limitations: no limitations History of Present Illness HPI Narrative: 69-year-old female presents to the [facility] complaining of upper respiratory symptoms for approximately 3 weeks. Patient reports cough, sinus congestion, mucopurulent nasal drainage, sore throat. Patient has any fevers, eczema chills, nausea vomiting, diarrhea abdominal pain, chest pain, difficulty breathing, or any other symptoms. Patient has had a left over prescription Augmentin yesterday is since she woke up today with significant improvement in symptoms please she might have walking pneumonia or sinus infection. Patient denies any significant past medical history. Related Data Home Medications ?Medication ?Instructions ?Recorded ?Confirmed ?Last Taken ?Type rosuvastatin 10 mg tablet 10 mg PO DAILY 08/13/22 02/18/25 01/02/24 History aspirin 81 mg tablet 81 mg PO DAILY 12/14/23 02/18/25 12/29/23 History cholecalciferol (vitamin D3) 50 50 mcg PO DAILY 12/14/23 02/18/25 01/02/24 History mcg (2,000 unit) tablet magnesium 500 mg tablet 500 mg PO DAILY 12/14/23 02/18/25 01/02/24 History ferrous sulfate 27 mg iron tablet 18 mg PO DAILY 01/03/24 02/18/25 12/29/23 History Allergies Allergy/AdvReac Type Severity Reaction Status Date / Time No Known Allergies Allergy Verified 02/18/25 12:19 Review of Systems Review of Systems: CONSTITUTIONAL: Denies fever, body aches, chills, or sweats. EYES: Denies visual changes, redness, or discharge. ENT: Denies rhinorrhea, or otalgia. Positive for congestion, mucopurulent nasal drainage, and sore throat. CARDIOVASCULAR: Denies chest pain, palpitations, or edema. RESPIRATORY: Positive for cough. Negative for wheezing or Dyspnea. GASTROINTESTINAL: Denies abdominal pain, nausea, vomiting, or diarrhea. GENITOURINARY: Denies dysuria or hematuria. SKIN: Denies rash or itching. MUSCULOSKELETAL: Denies back pain, joint pain, or myalgia. NEUROLOGIC: Denies headache, numbness, or weakness. PSYCHIATRIC: Denies anxiety or depression. All other systems reviewed are negative, except as documented in HPI. [facility] Past Medical History Medical History Colon polyp Trigeminal neuralgia Hyperlipidemia TIA (transient ischemic attack) 2004 Hypertension Social History Social History Smoking status: Never smoker Substance use type: does not use Living arrangements: alone Spiritual care concerns: No Comments At the time of my signature, I reviewed and agree with the nursing past medical, surgical, social, and family history. There is no relevant family history pertinent to the patient complaint. Exam Narrative: GENERAL: This is a well-nourished, well-developed adult, in no apparent distress. They are non ill-appearing, nontoxic appearing. HEAD: normocephalic, atraumatic. EYES: Sclera clear/white. Conjunctiva normal. Vision is grossly intact. Extraocular movements intact EARS: External ears normal, auditory canals clear and without drainage, TMs normal without perforation. Hearing grossly intact. NOSE: External nose normal with no obvious nasal discharge, nasal turbinates she erythematous, no rhinorrhea. THROAT: Mucous membranes moist, posterior pharynx edematous without redness. No exudate. Uvula midline. Postnasal drip present. NECK: Neck supple, non-tender without lymphadenopathy, masses or thyromegaly. CARDIOVASCULAR: Regular rate and rhythm without murmurs, gallops, or rubs. RESPIRATORY: Clear to auscultation. Breath sounds equal bilaterally. No wheezes, rales, or rhonchi. SKIN: warm, Dry, intact with no suspicious lesions or rash, good texture and turgor. NEURO: awake, alert, and oriented to person, place and time. There were no obvious focal neurologic abnormalities. EXTREMITIES: No joint tenderness, effusion, or edema noted. Course Course Emergency Course: Portions of this record may have been created with voice recognition software Level of Care: Express Care Visit Vital Signs Vital signs: Vital Signs Temperature 97.5 F L 02/18/25 12:18 Pulse Rate 73 02/18/25 12:18 Respiratory Rate 16 02/18/25 12:18 Blood Pressure 182/84 H 02/18/25 12:18 Pulse Oximetry 100 02/18/25 12:18 Temperature 97.5 F L 02/18/25 12:18 Pulse Rate 73 02/18/25 12:18 Respiratory Rate 16 02/18/25 12:18 Blood Pressure 182/84 H 02/18/25 12:18 Pulse Oximetry 100 02/18/25 12:18 Reviewed MDM - URI/Sore Throat MDM Narrative Medical decision making narrative: Patient nontoxic appearing, no apparent distress, lungs are clear to auscultation. She likely has a bacterial sinusitis will send a prescription of Augmentin to her pharmacy. Discussed physical exam findings. Advised supportive measures and signs/symptoms to go to the ER. Pt is appropriate for outpt treatment and f/u. Differential Diagnosis Differential diagnosis: Likely upper respiratory infection, sinusitis, viral infection and pharyngitis Critical Care Time Critical Care Time Critical Care Time: No Discharge Plan Discharge Clinical Impression: Sinusitis Qualifiers: Sinusitis location: unspecified location Chronicity: acute Recurrence: non-recurrent Qualified Code(s): J01.90 - Acute sinusitis, unspecified Patient Disposition: Home Condition: Stable Instructions: Antibiotic Form, Sinusitis (ED) Additional Instructions: Take the antibiotics as directed and complete the course even if you start to feel better. You may use a Neti pot saline rinse 3 times a day with lukewarm distilled water Continue to take Tylenol or Motrin as needed for pain or fevers. Follow instructions on the bottle. Use a humidifier or vaporizer at night. Drink plenty of water. 8-10 glasses per day. Use flonase 2 times per day for 5 days then as needed he also try azelastine antihistamine nasal spray 2 sprays each nostril daily. Take mucinex 2 times per day and be sure to take with 8oz of water. Follow up with Primary provider in 3-5 days Please go to the ER if he develops any difficulty breathing, chest pains, nausea vomiting, uncontrollable fevers, worsening symptoms, or any other concerns Patient Language: Amharic Prescriptions: New amoxicillin-pot clavulanate 875-125 mg tablet 1 tablet PO Q12H 7 Days Qty: 14 0RF No Action ofloxacin 0.3 % drops 2 drp EACH EYE QID 7 Days Qty: 5 0RF rosuvastatin 10 mg tablet 10 mg PO DAILY magnesium 500 mg Tablet 500 mg PO DAILY aspirin [Adult Aspirin] 81 mg Tablet 81 mg PO DAILY cholecalciferol (vitamin D3) 50 mcg (2,000 unit) Tablet 50 mcg PO DAILY ferrous sulfate 27 mg iron Tablet 18 mg PO DAILY amlodipine 5 mg tablet 5 mg PO DAILY Qty: 30 0RF Follow-up/Referrals: UNKNOWN,DOCTOR [Primary Care Provider] Time of Disposition: 12:30
== END 2025-02-18 12:34 | disposition home or self-care (01) ==
DX: J01.90 Acute sinusitis, unspecified (principal); I10 Essential (primary) hypertension; E78.5 Hyperlipidemia, unspecified; Z79.82 Long term (current) use of aspirin; Z86.73 Personal history of transient ischemic attack (TIA), and cerebral infarction without residual deficits
CPT/HCPCS: 99213; G0463